=== PATIENT | female | born 1955 | race Caucasian/White ===

== ENCOUNTER 2017-02-13 07:25 | Emergency (ER) | payer OTHER ==
[~2017-02-13] VITALS: Ht 154.9 cm; Wt 70.5 kg
[~2017-02-13 07:25] MED LIST: DILT180C59 PO; METAMUCIL1 PK1 PO; OMEP40CA6 PO; RANI25TA PO; [UNRECOGNIZED DRUG - CODE] PO
[2017-02-13 07:27] VITALS: Ht 154.9 cm; Wt 70.5 kg
[2017-02-13] MEDS ORDERED: ONDANSETRON 4 MG INJ IV STA (08:20)
[2017-02-13] MEDS ORDERED: morphine 4 MG/ML VIAL IV STA (08:20)
[2017-02-13] MEDS ORDERED: SOD CHLORIDE 0.9% 500 ML IV STA (08:20)
[2017-02-13 08:59] LABS: ADD SCAN DIFF NO
[2017-02-13 09:02] LABS: BASOPHIL # 0.1 10^3/ul (0.0-0.1); BASOPHILS % 0.6 % (0.0-2.0); EOSINOPHILS # 0.2 10^3/ul (0.0-0.5); EOSINOPHILS % 2.8 % (0.0-7.0); HEMATOCRIT 35.4 % (37.0-47.0); LYMPHOCYTES # 1.4 10^3/ul (0.8-2.9); LYMPHOCYTES % 18.2 % (15.0-51.0); MEAN CORPUSCULAR HEMOGLOBIN 29.3 pg (29.0-33.0); MEAN CORPUSCULAR HGB CONC 33.9 g/dl (32.0-37.0); MEAN CORPUSCULAR VOLUME 86.3 fl (82.0-101.0); MEAN PLATELET VOLUME 9.8 fl (7.4-10.4); MONOCYTE # 0.6 10^3/ul (0.3-0.9); MONOCYTES % 7.4 % (0.0-11.0); NEUTROPHIL # 5.5 10^3/ul (1.6-7.5); NEUTROPHILS % 70.7 % (39.0-77.0); PLATELET COUNT 314 10^3/UL (140-415); RED CELL DISTRIBUTION WIDTH 13.9 % (11.5-14.5); WHITE BLOOD COUNT 7.8 10^3/ul (4.8-10.8)
[2017-02-13 09:11] LABS: ADD UMIC YES; UR ASCORBIC ACID NEGATIVE (NEGATIVE); UR BILIRUBIN (Dip) NEGATIVE (NEGATIVE); UR BLOOD (Dip) 1+ mg/dL (NEGATIVE); UR CLARITY CLEAR (CLEAR); UR COLOR YELLOW (YELLOW); UR GLUCOSE (Dip) NEGATIVE (NEGATIVE); UR KETONES (Dip) NEGATIVE (NEGATIVE); UR LEUKOCYTE ESTERASE (Dip) 1+ Leu/ul (NEGATIVE); UR NITRITE (Dip) NEGATIVE (NEGATIVE); UR RBC 1 /HPF (0-5); UR SPECIFIC GRAVITY (Dip) 1.018 (1.003-1.030); UR SQUAMOUS EPITHELIAL CELL FEW /HPF (FEW); UR TOTAL PROTEIN (Dip) NEGATIVE (NEGATIVE); UR UROBILINOGEN (Dip) NEGATIVE (NEGATIVE)
[2017-02-13 09:20] LABS: ALANINE AMINOTRANSFERASE 33 IU/L (13-69); ALBUMIN 4.6 g/dl (3.3-4.9); ALBUMIN/GLOBULIN RATIO 1.64; ALKALINE PHOSPHATASE 108 IU/L (42-121); ANION GAP 14 (8-16); ASPARTATE AMINO TRANSFERASE 24 IU/L (15-46); BILIRUBIN,INDIRECT 0.4 mg/dl (0-1.1); BILIRUBIN,TOTAL 0.4 mg/dl (0.2-1.3); BLOOD UREA NITROGEN 18 mg/dl (7-20); CALCIUM 9.5 mg/dl (8.4-10.2); CARBON DIOXIDE 26 mmol/L (21-31); CHLORIDE 105 mmol/L (97-110); GLUCOSE 90 mg/dl (70-220); SODIUM 141 mmol/L (135-144); TOTAL PROTEIN 7.4 g/dl (6.1-8.1)
[2017-02-13 09:35] LABS: TROPONIN-I < 0.012 ng/ml (0.00-0.12)
--- NOTE | 2017-02-13 09:43 | ERD ---
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 The patient describes approximately 12 hours of symptoms that include left lower quadrant abdominal discomfort with associated nonbloody nonbilious emesis. She also describes generalized malaise and mild headache that is dull, gradual and throbbing. She also reports a prolonged history of stable angina. Yesterday she had some mild shortness of breath alleviated by nitroglycerin which is standard for her. No current chest pain. No pleuritic pain. She denies any diarrhea, no hematochezia. She does describe a history of diverticulosis. ROS All systems reviewed and are negative except as per history of present illness. Medications Home Meds Active Scripts Diltiazem Hcl* (Cardizem LA*) 180 Mg Tab.sr.24h, 180 MG PO DAILY, #30 TAB.SA Prov:JUANITA DUNBAR MD 02/13/17 Omeprazole* (Omeprazole*) 40 Mg Capsule.dr, 40 MG PO DAILY, #30 CAP Prov:JUANITA DUNBAR MD 02/13/17 Dicyclomine Hcl* (Bentyl*) 10 Mg Capsule, 10 MG PO TID Y for abdominal cramping , #20 CAP Prov:JUANITA DUNBAR MD 02/13/17 Ondansetron (Ondansetron Odt) 4 Mg Tab.rapdis, 4 MG PO Q6H Y for NAUSEA AND/OR VOMITING, #30 TAB Prov:JUANITA DUNBAR MD 02/13/17 Reported Medications Psyllium Seed (Metamucil) 1 Pkt Packet, 1 PKT PO 07/06/13 Ranitidine Hcl (Zantac 25) 25 Mg Tablet.eff, 25 MG PO DAILY 07/06/13 Omeprazole* (Omeprazole*) 40 Mg Capsule.dr, 40 MG PO DAILY 07/06/13 Diltiazem Hcl (Diltia Xt) 180 Mg Capsule.cr, 180 MG PO DAILY 07/06/13 Aspirin (Asperdrink) 81 Mg Tablet.eff, 81 MG PO DAILY 07/06/13 Allergies Allergies: Coded Allergies: Penicillins (Verified Allergy, Intermediate, 02/13/17) PMhx/Soc History of Surgery: Yes (polyps, stents?) Anesthesia Reaction: No Hx Neurological Disorder: No Hx Respiratory Disorders: No Hx Cardiac Disorders: Yes (HIGH CHOLESTEROL,HTN) Hx Psychiatric Problems: No Hx Miscellaneous Medical Probl: Yes (diverticulitis) Hx Alcohol Use: No Hx Substance Use: No Hx Tobacco Use: No Smoking Status: Never smoker FmHx Family History: No diabetes Physical Exam Vitals Vital Signs Date Time Temp Pulse Resp B/P Pulse Ox O2 Delivery O2 Flow Rate FiO2 02/13/17 07:27 98.3 66 20 131/60 99 Physical Exam General: Well developed, well nourished, no acute distress Head: Normocephalic, atraumatic. Eyes: Pupils equally reactive, EOM intact ENT: Moist mucous membranes Neck: Supple, no lymphadenopathy Respiratory: Lungs clear bilaterally, no distress Cardiovascular: RRR, no murmurs, rubs, or gallops Abdominal: Soft, inconsistent tenderness to left lower quadrant, non-distended, no peritoneal signs : Deferred MSK: No edema, no unilateral swelling, 5/5 strength Neurologic: Alert and oriented, moving all extremities, normal speech, no focal weakness, no cerebellar signs Skin: No rash Psych: Normal mood Result Diagram: 02/13/17 0839 02/13/17 0839 Results 24 hrs Laboratory Tests Test 02/13/17 08:34 02/13/17 08:39 Urine Color YELLOW Urine Clarity CLEAR Urine pH 5.0 Urine Specific [place] 1.018 Urine Ketones NEGATIVEmg/dL Urine Nitrite NEGATIVEmg/dL Urine Bilirubin NEGATIVEmg/dL Urine Urobilinogen NEGATIVEmg/dL Urine Leukocyte Esterase 1+[place]/ul Urine Microscopic RBC 1/HPF Urine Microscopic WBC 2/HPF Urine Squamous Epithelial Cells FEW/HPF Urine Hemoglobin 1+mg/dL Urine Glucose NEGATIVEmg/dL Urine Total Protein NEGATIVEmg/dl White Blood Count 7.810^3/ul Red Blood Count 4.1010^6/ul Hemoglobin 12.0g/dl Hematocrit 35.4% Mean Corpuscular Volume 86.3fl Mean Corpuscular Hemoglobin 29.3pg Mean Corpuscular Hemoglobin Concent 33.9g/dl Red Cell Distribution Width 13.9% Platelet Count 99014^3/UL Mean Platelet Volume 9.8fl Neutrophils % 70.7% Lymphocytes % 18.2% Monocytes % 7.4% Eosinophils % 2.8% Basophils % 0.6% Nucleated Red Blood Cells % 0.0/100WBC Neutrophils # 5.510^3/ul Lymphocytes # 1.410^3/ul Monocytes # 0.610^3/ul Eosinophils # 0.210^3/ul Basophils # 0.110^3/ul Nucleated Red Blood Cells # 0.010^3/ul Sodium Level 141mmol/L Potassium Level 4.0mmol/L Chloride Level 105mmol/L Carbon Dioxide Level 26mmol/L Anion Gap 14 Blood Urea Nitrogen 18mg/dl Creatinine 0.80mg/dl Glucose Level 90mg/dl Calcium Level 9.5mg/dl Total Bilirubin 0.4mg/dl Direct Bilirubin 0.00mg/dl Indirect Bilirubin 0.4mg/dl Aspartate Amino Transf (AST/SGOT) 24IU/L Alanine Aminotransferase (ALT/SGPT) 33IU/L Alkaline Phosphatase 108IU/L Troponin I < 0.012ng/ml Total Protein 7.4g/dl Albumin 4.6g/dl Globulin 2.80g/dl Albumin/Globulin Ratio 1.64 Lipase 139U/L Current Medications Medications (Trade) Dose Ordered Sig/Kalpesh Route PRN Reason Start Time Stop Time Status Last Admin Dose Admin Sodium Chloride (NS) 500 ml @ 500 mls/hr Q1H STAT IV 02/13/17 08:20 02/13/17 09:19 DC 02/13/17 08:47 Morphine Sulfate (morphine) 4 mg ONCE STAT IV 02/13/17 08:20 02/13/17 08:21 DC 02/13/17 08:47 Ondansetron HCl (Zofran Inj) 4 mg ONCE STAT IV 02/13/17 08:20 02/13/17 08:21 DC 02/13/17 08:44 Procedures/MDM EKG, MONITORS, & DIAGNOSTIC IMAGING: EKG: I reviewed and interpreted a 12-lead EKG. Rhythm: Normal sinus rhythm Ectopy: None Intervals: No abnormalities ST segments: No elevations or depressions T waves: No contiguous inversions CT abdomen and pelvis: No acute intra-abdominal process per radiology LAB INTERPRETATION: No significant leukocytosis or hepatobiliary obstruction MEDICAL DECISION MAKING: The patient presents with report of nausea vomiting and lower left-sided abdominal pain. Given her history diverticulitis is certainly possible however a viral process is more likely suspected. The patient has an inconsistent examination and when having a conversation she has no tenderness to the left lower quadrant of the abdomen. Additionally it should be noted that the patient does describe a history of stable angina that is unchanged and consistent with her baseline. I do not believe the patient's abdominal pain is related to cardiac etiology however I do believe she will benefit from EKG and troponin. She has greater than 6 hours of symptoms and no chest pain during this timeframe. I do not believe inpatient hospitalization is necessary unless the patient's EKG her troponin is abnormal. ER COURSE: The patient was given IV fluids and pain control medication. Repeat abdominal exam is benign. Laboratory testing and diagnostic imaging is additionally benign. The patient requests refills for omeprazole and Cardizem which were provided. At this time there is no indication for hospitalization or antibiotics, likely viral process. The patient has no chest pain and describes no change in her stable angina. Outpatient follow-up would be appropriate. Negative EKG and troponin currently. I kept the patient and/or family informed of laboratory and diagnostic imaging results throughout the emergency room course. DISPOSITION PLAN: [] CONSULTATION: [] Departure Diagnosis: Primary Impression: Abdominal pain Abdominal location: left lower quadrant Qualified Code: R10.32 - Left lower quadrant pain Condition: Stable JUANITA DUNBAR MD Feb 13, 2017 09:43
--- NOTE | 2017-02-13 09:46 | RADRPT ---
PROCEDURE: CT Abdomen and Pelvis without contrast. CLINICAL INDICATION: Left-sided abdominal pain. History of diverticulitis. TECHNIQUE: CT scan of the abdomen and pelvis without contrast was performed on a multidetector hig h-resolution CT scanner. The patient was scanned without intravenous contrast. Coronal and sagittal reformatted images were obtained from the axial source images. Images were reviewed on a high-resol [employer] PACS workstation. The total exam CTDI equals 14.6 mGy and the total exam DLP equals 783.04 mGy -cm. One or the following dose reduction techniques were used: -Automated exposure control. -Adjustment of the mA and/or KV according to patient's size. -Use of iterative reconstruction technique. COMPARISON: None. FINDINGS: Lung Bases: There is minimal bibasilar dependent subsegmental atelectasis. GI:. There is a small hiatal hernia. Liver: Unremarkable. Gallbladder: Unremarkable. Pancreas: Unremarkable. Spleen: There is a 1.5 cm splenule in the splenic hilum. Adrenals: Unremarkable. Kidneys: There is no evidence of urolithiasis or obstructive uropathy. Bladder: Unremarkable. Pelvic Organs: Unremarkable. Skeleton: Normal for age. Other: N/A IMPRESSION: 1. No evidence of urolithiasis or obstructive uropathy. 2. Minimal scattered colonic diverticulosis without evidence of acute diverticulitis. 3. Small hiatal hernia. 4. No other significant intra-abdominal or pelvic process identified. RPTAT: [facility] Physician Manuel Date Time Electronically viewed and signed by Physician Manuel on 02/13/2017 09:45 /
[2017-02-13] MEDS ORDERED: DICY10CA60 PO (10:10)
[2017-02-13] MEDS ORDERED: ONDA4TAB14 PO (10:10)
[2017-02-13] MEDS ORDERED: OMEP40CA6 PO (10:34)
[2017-02-13] MEDS ORDERED: DILT180T PO (10:34)
[2017-02-13 11:10] VITALS: BP 122/64; PULSE 55; RESP 18; TEMP 98
== END 2017-02-13 11:10 | disposition home or self-care (01) ==
LOC: E/R 07:25
DX: R10.32 Left lower quadrant pain (principal); R11.10 Vomiting, unspecified; I10 Essential (primary) hypertension; Z79.82 Long term (current) use of aspirin
CPT/HCPCS: 36415; 74176; 80053; 81001; 83690; 84484; 85025; 93005; 96374; 96375; J2270; J2405; J7040; Z7502

== ENCOUNTER 2017-04-23 09:57 | Emergency (ER) | payer OTHER ==
[~2017-04-23] VITALS: Ht 160 cm; Wt 70.5 kg
[~2017-04-23 09:57] MED LIST changes: +DICY10CA60 PO; +DILT180T PO; +ONDA4TAB14 PO
[2017-04-23 10:01] VITALS: Ht 160 cm; Wt 70.5 kg
[2017-04-23 11:40] LABS: BASOPHIL # 0.1 10^3/ul (0.0-0.1); BASOPHILS % 0.6 % (0.0-2.0); EOSINOPHILS # 0.3 10^3/ul (0.0-0.5); EOSINOPHILS % 2.6 % (0.0-7.0); HEMATOCRIT 38.4 % (37.0-47.0); HEMOGLOBIN 12.8 g/dl (12.0-16.0); LYMPHOCYTES # 1.6 10^3/ul (0.8-2.9); LYMPHOCYTES % 14.4 % (15.0-51.0); MEAN CORPUSCULAR HEMOGLOBIN 28.2 pg (29.0-33.0); MEAN CORPUSCULAR HGB CONC 33.3 g/dl (32.0-37.0); MEAN CORPUSCULAR VOLUME 84.6 fl (82.0-101.0); MONOCYTES % 9.1 % (0.0-11.0); NEUTROPHILS % 72.9 % (39.0-77.0); PLATELET COUNT 329 10^3/UL (140-415); RED BLOOD COUNT 4.54 10^6/ul (4.20-5.40); RED CELL DISTRIBUTION WIDTH 13.6 % (11.5-14.5); WHITE BLOOD COUNT 11.3 10^3/ul (4.8-10.8)
--- NOTE | 2017-04-23 12:04 | RADRPT ---
PROCEDURE: Chest radiograph CLINICAL INDICATION: Chest Pain.. COMPARISON: Radiograph 07/06/2013. TECHNIQUE: Single frontal chest radiograph. FINDINGS: The lungs are clear. No pleural effusion or focal parenchymal opacity. The cardiomediastinal silhouette is normal. No suspicious bone lesion. IMPRESSION: No acute cardiopulmonary abnormality. RPTAT: PP Physician Alejandro Date Time Electronically viewed and signed by Crystal Smith Physician on 04/23/2017 12:04 LG/
--- NOTE | 2017-04-23 12:15 | RADRPT ---
PROCEDURE: Hand radiograph CLINICAL INDICATION: Fall. COMPARISON: None relevant listed. TECHNIQUE: AP, lateral, and oblique views of the right hand was obtained. FINDINGS: Alignment is anatomic. No fracture or destructive bone lesion. Large degenerative marginal osteophytes at the DIP joint of the middle finger and small finger. No localized soft tissue swelling. IMPRESSION: No acute fracture or dislocation. RPTAT: PP Physician Alejandro Date Time Electronically viewed and signed by Physician Alejandro on 04/23/2017 12:15 LG/
[2017-04-23 12:18] LABS: ALANINE AMINOTRANSFERASE 30 IU/L (13-69); ALBUMIN 4.3 g/dl (3.3-4.9); ALBUMIN/GLOBULIN RATIO 1.26; ALKALINE PHOSPHATASE 119 IU/L (42-121); ANION GAP 17 (8-16); ASPARTATE AMINO TRANSFERASE 24 IU/L (15-46); BILIRUBIN,INDIRECT 0.3 mg/dl (0-1.1); BILIRUBIN,TOTAL 0.3 mg/dl (0.2-1.3); BLOOD UREA NITROGEN 17 mg/dl (7-20); CALCIUM 9.3 mg/dl (8.4-10.2); CARBON DIOXIDE 22 mmol/L (21-31); CHLORIDE 104 mmol/L (97-110); CREATININE 0.95 mg/dl (0.44-1.00); GLUCOSE 97 mg/dl (70-220); POTASSIUM 4.1 mmol/L (3.5-5.1); SODIUM 139 mmol/L (135-144); TOTAL PROTEIN 7.7 g/dl (6.1-8.1)
--- NOTE | 2017-04-23 12:18 | RADRPT ---
PROCEDURE: Knee radiographs CLINICAL INDICATION: Fall. COMPARISON: None relevant listed. TECHNIQUE: AP, lateral, and oblique view of both knees. FINDINGS: Right knee: Mild tricompartmental joint space narrowing with marginal osteophytes and spurring of t he tibial eminences. No fracture. Lungs is anatomic. Large suprapatellar effusion. Left knee: Small tricompartmental marginal osteophytes with spurring of the tibial eminences. No f racture. Alignment is anatomic. Small suprapatellar effusion. IMPRESSION: 1. No fracture or dislocation. 2. Large right and small left suprapatellar effusion. 3. Degenerative tricompartmental osteoarthrosis. RPTAT: PP Physician Alejandro Date Time Electronically viewed and signed by Physician Alejandro on 04/23/2017 12:18 LG/
[2017-04-23 12:33] LABS: TROPONIN-I < 0.012 ng/ml (0.00-0.12)
[2017-04-23] MEDS ORDERED: IBUP800T25 PO (12:44)
[2017-04-23] MEDS ORDERED: CEPH-443 PO (12:44)
--- NOTE | 2017-04-23 14:46 | ERD ---
ER Documentation Chief Complaint Date/Time DATE: 04/23/17 TIME: 14:39 Chief Complaint B/L KNEE PAIN , RT HAND LAC S/P FALL HPI 62 yr old complaining of hand and knee pain after mechanical fall. Patient also has chest pain and has history of cardiac stents. Patient denies shortness of breath. Patient denies headaches or dizziness. Patient has not taken medications for symptoms. Patient sustained a laceration to her right medial hand. She has not used any medications on the site. States she is up-to-date on tetanus. ROS All systems reviewed and are negative except as per history of present illness. Medications Home Meds Active Scripts Ibuprofen* (Motrin*) 800 Mg Tab, 800 MG PO Q6, #30 TAB Prov:MADISYN FAIR PA-C 04/23/17 Cephalexin* (Keflex*) 500 Mg Capsule, 500 MG PO QID for 7 Days, CAP Prov:MADISYN FAIR PA-C 04/23/17 Diltiazem Hcl* (Cardizem LA*) 180 Mg Tab.sr.24h, 180 MG PO DAILY, #30 TAB.SA Prov:JUANITA DUNBAR MD 02/13/17 Omeprazole* (Omeprazole*) 40 Mg Capsule.dr, 40 MG PO DAILY, #30 CAP Prov:JUANITA DUNBAR MD 02/13/17 Dicyclomine Hcl* (Bentyl*) 10 Mg Capsule, 10 MG PO TID Y for abdominal cramping , #20 CAP Prov:JUANITA DUNBAR MD 02/13/17 Ondansetron (Ondansetron Odt) 4 Mg Tab.rapdis, 4 MG PO Q6H Y for NAUSEA AND/OR VOMITING, #30 TAB Prov:JUANITA DUNBAR MD 02/13/17 Reported Medications Psyllium Seed (Metamucil) 1 Pkt Packet, 1 PKT PO 07/06/13 Ranitidine Hcl (Zantac 25) 25 Mg Tablet.eff, 25 MG PO DAILY 07/06/13 Omeprazole* (Omeprazole*) 40 Mg Capsule.dr, 40 MG PO DAILY 07/06/13 Diltiazem Hcl (Diltia Xt) 180 Mg Capsule.cr, 180 MG PO DAILY 07/06/13 Aspirin (Asperdrink) 81 Mg Tablet.eff, 81 MG PO DAILY 07/06/13 Allergies Allergies: Coded Allergies: Penicillins (Verified Allergy, Intermediate, 02/13/17) Uncoded Allergies: SULFA (Allergy, Unknown, 04/23/17) PMhx/Soc History of Surgery: Yes (polyps, stents?) Anesthesia Reaction: No Hx Neurological Disorder: No Hx Respiratory Disorders: No Hx Cardiac Disorders: Yes (HTN) Hx Psychiatric Problems: No Hx Miscellaneous Medical Probl: Yes (Gastritis) Hx Alcohol Use: No Hx Substance Use: No Hx Tobacco Use: No Smoking Status: Never smoker Physical Exam Vitals Vital Signs Date Time Temp Pulse Resp B/P Pulse Ox O2 Delivery O2 Flow Rate FiO2 04/23/17 10:01 98.5 88 18 157/66 100 Physical Exam GENERAL: The patient is well-appearing, well-nourished, in no acute distress CHEST: Clear to auscultation bilaterally. There are no rales, wheezes or rhonchi. HEART: Regular rate and rhythm. No murmurs, clicks, rubs or gallops. No S3 or S4. EXTREMITIES: Equal pulses bilaterally. There is no peripheral clubbing, cyanosis or edema. No focal swelling or erythema. Full range of motion. Grossly neurovascularly intact. NEUROLOGIC: Alert and oriented. Cranial nerves II through XII intact. Motor strength in all 4 extremities with 5 out of 5 strength. Sensation grossly intact. Normal speech and gait. Babinski negative. DTR 2+ throughout. SKIN: Superficial laceration approximately 4 cm to right medial hand. No active bleeding. No foreign bodies. HEMATOLOGIC AND LYMPHATIC: There is no evidence of excessive bruising or lymphadenopathy. No gross cervical, axillary, or inguinal lymphadenopathy. Result Diagram: 04/23/17 1102 04/23/17 1102 Results 24 hrs Laboratory Tests Test 04/23/17 11:02 White Blood Count 11.310^3/ul Red Blood Count 4.5410^6/ul Hemoglobin 12.8g/dl Hematocrit 38.4% Mean Corpuscular Volume 84.6fl Mean Corpuscular Hemoglobin 28.2pg Mean Corpuscular Hemoglobin Concent 33.3g/dl Red Cell Distribution Width 13.6% Platelet Count 40567^3/UL Mean Platelet Volume 10.0fl Neutrophils % 72.9% Lymphocytes % 14.4% Monocytes % 9.1% Eosinophils % 2.6% Basophils % 0.6% Nucleated Red Blood Cells % 0.0/100WBC Neutrophils # (Manual) 8.210^3/ul Lymphocytes # 1.610^3/ul Monocytes # 1.010^3/ul Eosinophils # 0.310^3/ul Basophils # 0.110^3/ul Nucleated Red Blood Cells # 0.010^3/ul Sodium Level 139mmol/L Potassium Level 4.1mmol/L Chloride Level 104mmol/L Carbon Dioxide Level 22mmol/L Anion Gap 17 Blood Urea Nitrogen 17mg/dl Creatinine 0.95mg/dl Glucose Level 97mg/dl Calcium Level 9.3mg/dl Total Bilirubin 0.3mg/dl Direct Bilirubin 0.00mg/dl Indirect Bilirubin 0.3mg/dl Aspartate Amino Transf (AST/SGOT) 24IU/L Alanine Aminotransferase (ALT/SGPT) 30IU/L Alkaline Phosphatase 119IU/L Troponin I < 0.012ng/ml Total Protein 7.7g/dl Albumin 4.3g/dl Globulin 3.40g/dl Albumin/Globulin Ratio 1.26 Procedures/MDM DIAGNOSTIC IMAGING REPORT Patient: EMANUEL COOL : 1955 Age: 62 Sex: F MR #: [id number] DOS: 04/23/17 110 Ordering MD: MARIEL FARI PA-C Location: [facility] Room/Bed: PROCEDURE: Chest radiograph CLINICAL INDICATION: Chest Pain.. COMPARISON: Radiograph 07/06/2013. TECHNIQUE: Single frontal chest radiograph. FINDINGS: The lungs are clear. No pleural effusion or focal parenchymal opacity. The cardiomediastinal silhouette is normal. No suspicious bone lesion. IMPRESSION: No acute cardiopulmonary abnormality. DIAGNOSTIC IMAGING REPORT Patient: EMANUEL COOL : 1955 Age: 62 Sex: F MR #: [id number] DOS: 04/23/17 110 Ordering MD: MARIEL FAIR PA-C Location: [facility] Room/Bed: PROCEDURE: Hand radiograph CLINICAL INDICATION: Fall. COMPARISON: None relevant listed. TECHNIQUE: AP, lateral, and oblique views of the right hand was obtained. FINDINGS: Alignment is anatomic. No fracture or destructive bone lesion. Large degenerative marginal osteophytes at the DIP joint of the middle finger and small finger. No localized soft tissue swelling. IMPRESSION: No acute fracture or dislocation. DIAGNOSTIC IMAGING REPORT Patient: EMANUEL COOL : 1955 Age: 62 Sex: F MR #: [id number] DOS: 04/23/17 1102 Ordering MD: MARIEL FAIR PA-C Location: [facility] Room/Bed: PROCEDURE: Knee radiographs CLINICAL INDICATION: Fall. COMPARISON: None relevant listed. TECHNIQUE: AP, lateral, and oblique view of both knees. FINDINGS: Right knee: Mild tricompartmental joint space narrowing with marginal osteophytes and spurring of the tibial eminences. No fracture. Lungs is anatomic. Large suprapatellar effusion. Left knee: Small tricompartmental marginal osteophytes with spurring of the tibial eminences. No fracture. Alignment is anatomic. Small suprapatellar effusion. IMPRESSION: 1. No fracture or dislocation. 2. Large right and small left suprapatellar effusion. 3. Degenerative tricompartmental osteoarthrosis. ER Course: Laceration on right hand is older than 24 hours. Site will not be sutured. Site was cleaned and bacitracin ointment and bandage applied. EKG: NSR. No Stemi. 68 BPM. No arrythmias. MDM: 62-year-old female complaining of hand pain after fall. I have low suspicion for acute fracture dislocation. I have low suspicion for cardiac abnormalities. I have low suspicion for intracranial hemorrhage or mass- effect. Patient's neuro exam is within normal limits. Patient's bone exam is within normal limits and imaging is within normal limits. Patient does have a superficial laceration noted of the right medial hand. Patient's wound is older than 24 hours so there is no indication for suturing however I did clean and bandage the wound. Patient was placed on antibiotics for prophylaxis. Patient is up-to-date on tetanus and does not require vaccination at today's visit. Departure Diagnosis: Primary Impression: Abrasion Additional Impression: Fall Condition: Stable Patient Instructions: Abrasion, Fall, Mechanical Referrals: COMMUNITY CLINICS YOU HAVE RECEIVED A MEDICAL SCREENING EXAM AND THE RESULTS INDICATE THAT YOU DO NOT HAVE A CONDITION THAT REQUIRES URGENT TREATMENT IN THE EMERGENCY DEPARTMENT. FURTHER EVALUATION AND TREATMENT OF YOUR CONDITION CAN WAIT UNTIL YOU ARE SEEN IN YOUR DOCTORS OFFICE WITHIN THE NEXT 1-2 DAYS. IT IS YOUR RESPONSIBILITY TO MAKE AN APPOINTMENT FOR FOLOW-UP CARE. IF YOU HAVE A PRIMARY DOCTOR --you should call your primary doctor and schedule an appointment IF YOU DO NOT HAVE A PRIMARY DOCTOR YOU CAN CALL OUR PHYSICIAN REFERRAL HOTLINE AT IF YOU CAN NOT AFFORD TO SEE A PHYSICIAN YOU CAN CHOSE FROM THE FOLLOWING [facility] [address] [facility] [address] [facility] [facility] [address] [facility] [address] [facility] [address] [facility] [facility] [address] Additional Instructions: FOLLOW UP WITH YOUR PRIMARY CARE PHYSICIAN TOMORROW.Return to this facility if you are not improving as expected. MADISYN FAIR PA-C Apr 23, 2017 14:46
== END 2017-04-23 13:02 | disposition home or self-care (01) ==
LOC: FTE 09:57
DX: S61.411A Laceration without foreign body of right hand, initial encounter (principal); I10 Essential (primary) hypertension; W18.39XA Other fall on same level, initial encounter; Y92.9 Unspecified place or not applicable; Z79.82 Long term (current) use of aspirin; Z98.61 Coronary angioplasty status
CPT/HCPCS: 36415; 71010; 73130; 73562; 80053; 84484; 85025; 93005; Z7502

== ENCOUNTER 2017-05-30 19:01 | Emergency (ER) | payer OTHER ==
[~2017-05-30] VITALS: Ht 165.1 cm; Wt 73.5 kg
[~2017-05-30 19:01] MED LIST changes: +CEPH-443 PO; +IBUP800T25 PO
[2017-05-30 19:25] VITALS: Ht 165.1 cm; Wt 73.5 kg
--- NOTE | 2017-05-30 21:44 | RADRPT ---
PROCEDURE: CT Brain without contrast. CLINICAL INDICATION: Syncope TECHNIQUE: A CT of the brain was performed on a multidetector CT scanner utilizing axial imaging f rom the skull base through the vertex without IV contrast. Multiplanar reformatted images were made . Images were reviewed on a PACS workstation. The CTDIvol is 43 mGy and the DLP is the 824 mGycm. Individualized dosed optimization technique was used for the performance of this exam. This included 1. Automated exposure control. 2. Adjustment of the mA and / or kV according to the patient's size. 3. The use of iterative reconstruction technique. COMPARISON: None FINDINGS: There is no intracranial hemorrhage, mass effect, or midline shift. No extra-axial fluid collection is seen. There is mild to moderate diffuse cerebral volume loss with sulcal and ventricular dilatat ion.. The density of the brain is normal, and the haas white matter differentiation appears well-pre served. The visualized paranasal sinuses and osseous structures are grossly unremarkable. IMPRESSION: 1. No evidence of acute intracranial pathology. 2. Atrophy. .Ivan Palacios MD, Date Time Electronically viewed and signed by .Ivan Palacios MD, MD on 05/30/2017 21:44 .A/
[2017-05-30 22:01] LABS: BASOPHIL # 0.1 10^3/ul (0.0-0.1); BASOPHILS % 0.7 % (0.0-2.0); EOSINOPHILS # 0.3 10^3/ul (0.0-0.5); EOSINOPHILS % 2.8 % (0.0-7.0); HEMATOCRIT 38.7 % (37.0-47.0); HEMOGLOBIN 12.6 g/dl (12.0-16.0); LYMPHOCYTES # 2.4 10^3/ul (0.8-2.9); LYMPHOCYTES % 21.3 % (15.0-51.0); MEAN CORPUSCULAR HEMOGLOBIN 28.1 pg (29.0-33.0); MEAN CORPUSCULAR HGB CONC 32.6 g/dl (32.0-37.0); MEAN CORPUSCULAR VOLUME 86.2 fl (82.0-101.0); MEAN PLATELET VOLUME 9.7 fl (7.4-10.4); MONOCYTE # 0.6 10^3/ul (0.3-0.9); MONOCYTES % 5.3 % (0.0-11.0); NEUTROPHILS % 69.4 % (39.0-77.0); PLATELET COUNT 363 10^3/UL (140-415); RED BLOOD COUNT 4.49 10^6/ul (4.20-5.40); RED CELL DISTRIBUTION WIDTH 13.6 % (11.5-14.5); WHITE BLOOD COUNT 11.5 10^3/ul (4.8-10.8)
--- NOTE | 2017-05-30 22:06 | RADRPT ---
PROCEDURE: XR Chest. CLINICAL INDICATION: Chest pain. TECHNIQUE: Single frontal view. COMPARISON: 04/23/2017. FINDINGS: The lungs are clear. The heart size is normal. There is no pleural effusion. There is no pneumothorax. IMPRESSION: 1. Normal chest radiograph. 2. No change from 04/23/2017. RPTAT: QQ .Bib Isaacs MD, MD Date Time Electronically viewed and signed by .Bib Isaacs MD, MD on 05/30/2017 22:05 .R/
[2017-05-30 22:24] LABS: ANION GAP 12 (8-16); BLOOD UREA NITROGEN 19 mg/dl (7-20); CALCIUM 9.7 mg/dl (8.4-10.2); CARBON DIOXIDE 29 mmol/L (21-31); CHLORIDE 103 mmol/L (97-110); CREATININE 0.89 mg/dl (0.44-1.00); GLUCOSE 100 mg/dl (70-220); POTASSIUM 4.4 mmol/L (3.5-5.1); SODIUM 140 mmol/L (135-144)
[2017-05-30 22:37] LABS: TROPONIN-I < 0.012 ng/ml (0.00-0.12)
[2017-05-30] MEDS ORDERED: MED4DP PO (22:44)
--- NOTE | 2017-05-31 01:47 | ERD ---
ER Documentation Chief Complaint Date/Time DATE: 05/31/17 TIME: 01:41 Chief Complaint cough x 12 days. "back and chest feels sore" taking prescription meds HPI This is a 62-year-old female presents to the ER with cough for the last 12 days. Patient states that she has chest pain only when she is coughing. She denies any shortness of breath. Patient went to her PCP and was given Levaquin , albuterol and promethazine, none of which have been working. Patient states that she has been feeling dizzy which is described as a spinning sensation and that she fell once secondary to dizziness. Patient fell on her knees and does not complain of any knee pain or hand pain. Patient denies any fevers or chills. She denies any headaches. She denies any vision loss or vision changes. ROS 12 point review of systems was done, all negative except per HPI. Medications Home Meds Active Scripts Methylprednisolone* (Medrol* DOSE PACK) 4 Mg/Dose-Pack Tab.ds.pk, 4 MG PO . DIRECTED for 6 Days, PACKET Prov:DARIN REED 05/30/17 Ibuprofen* (Motrin*) 800 Mg Tab, 800 MG PO Q6, #30 TAB Prov:MADISYN FAIR PA-C 04/23/17 Cephalexin* (Keflex*) 500 Mg Capsule, 500 MG PO QID for 7 Days, CAP Prov:MADISYN FAIR PA-C 04/23/17 Diltiazem Hcl* (Cardizem LA*) 180 Mg Tab.sr.24h, 180 MG PO DAILY, #30 TAB.SA Prov:JUANITA DUNBAR MD 02/13/17 Omeprazole* (Omeprazole*) 40 Mg Capsule.dr, 40 MG PO DAILY, #30 CAP Prov:JUANITA DUNBAR MD 02/13/17 Dicyclomine Hcl* (Bentyl*) 10 Mg Capsule, 10 MG PO TID Y for abdominal cramping , #20 CAP Prov:JUANITA DUNBAR MD 02/13/17 Ondansetron (Ondansetron Odt) 4 Mg Tab.rapdis, 4 MG PO Q6H Y for NAUSEA AND/OR VOMITING, #30 TAB Prov:JUANITA DUNBAR MD 02/13/17 Reported Medications Psyllium Seed (Metamucil) 1 Pkt Packet, 1 PKT PO 07/06/13 Ranitidine Hcl (Zantac 25) 25 Mg Tablet.eff, 25 MG PO DAILY 07/06/13 Omeprazole* (Omeprazole*) 40 Mg Capsule.dr, 40 MG PO DAILY 07/06/13 Diltiazem Hcl (Diltia Xt) 180 Mg Capsule.cr, 180 MG PO DAILY 07/06/13 Aspirin (Asperdrink) 81 Mg Tablet.eff, 81 MG PO DAILY 07/06/13 Allergies Allergies: Coded Allergies: Penicillins (Verified Allergy, Intermediate, 05/31/17) Sulfa (Sulfonamide Antibiotics) (Unverified Allergy, Intermediate, ) PMhx/Soc History of Surgery: Yes (polyps, stents?) Anesthesia Reaction: No Hx Neurological Disorder: No Hx Respiratory Disorders: No Hx Cardiac Disorders: Yes (HTN) Hx Psychiatric Problems: No Hx Miscellaneous Medical Probl: Yes (Gastritis) Hx Alcohol Use: No Hx Substance Use: No Hx Tobacco Use: No Smoking Status: Never smoker Physical Exam Vitals Physical Exam GENERAL: The patient is well developed and appropriate for usual state of health , in no apparent distress. HEENT: Atraumatic. Conjunctivae are pink. Pupils equal, round, and reactive to light. Extraocular muscles are grossly intact. No nystagmus. Bilateral tympanic membranes are clear with no evidence of erythema, bulging or perforation. NECK: C-spine is soft and supple. There is no cervical lymphadenopathy. CHEST: Clear to auscultation bilaterally. There are no rales, wheezes or rhonchi. HEART: Regular rate and rhythm. No murmurs, clicks, rubs or gallops. EXTREMITIES: Equal pulses bilaterally. There is no peripheral clubbing, cyanosis or edema. No focal swelling or erythema. Full range of motion. Grossly neurovascularly intact. NEURO: Alert and oriented. Cranial nerves II through XII are intact. Motor strength in all 4 extremities with 5/5 strength. Sensation grossly intact. Normal speech and gait. Negative Rhomberg. +2 DTRs. SKIN: There is no apparent rash or petechia. The skin is warm and dry. Results 24 hrs Laboratory Tests Test 05/30/17 21:14 05/30/17 21:43 Bedside Glucose 89mg/dL White Blood Count 11.510^3/ul Red Blood Count 4.4910^6/ul Hemoglobin 12.6g/dl Hematocrit 38.7% Mean Corpuscular Volume 86.2fl Mean Corpuscular Hemoglobin 28.1pg Mean Corpuscular Hemoglobin Concent 32.6g/dl Red Cell Distribution Width 13.6% Platelet Count 51314^3/UL Mean Platelet Volume 9.7fl Neutrophils % 69.4% Lymphocytes % 21.3% Monocytes % 5.3% Eosinophils % 2.8% Basophils % 0.7% Nucleated Red Blood Cells % 0.0/100WBC Neutrophils # 8.010^3/ul Lymphocytes # 2.410^3/ul Monocytes # 0.610^3/ul Eosinophils # 0.310^3/ul Basophils # 0.110^3/ul Nucleated Red Blood Cells # 0.010^3/ul Sodium Level 140mmol/L Potassium Level 4.4mmol/L Chloride Level 103mmol/L Carbon Dioxide Level 29mmol/L Anion Gap 12 Blood Urea Nitrogen 19mg/dl Creatinine 0.89mg/dl Glucose Level 100mg/dl Calcium Level 9.7mg/dl Troponin I < 0.012ng/ml Procedures/MDM EKG was done 59bpm no st elevation or t wave inversion. Differential Diagnosis includes but is not limited to; Benign positional vertigo , labyrinthitis, vertigo, MS, acoustic neuroma, arrhythmia, anemia, hypoglycemia , infection, dehydration, pneumonia, acute PR. This is a 62 y/o female that presents to the ER with multiple complaints. She has had a severe cough for the last 12 days and states that now she has developed chest pain, and dizziness. I discussed this case with my supervising physician Dr. Skelton and he agrees with my medical decision making. Patient likely has a viral upper respiratory infection. Patient's EKG was negative for ST elevation and her troponin is negative. CT of the head was also negative for any intracranial abnormality. Patient's neurological examination is benign. Patient is not hypoxic or any respiratory distress. She is able to ambulate without any problems and has not had any falls or head trauma. She is stable for outpatient follow up. Patient needs to f/u with her PCP within 1-2 days or return to ER sooner if symptoms worsen. My medical decision making was discussed with the patient, she understands and agrees with plan. Departure Diagnosis: Primary Impression: Bronchitis Condition: Stable Patient Instructions: Acute Bronchitis Additional Instructions: Llame al doctor MAANA y radha fiorella BRITTANY PARA DENTRO DE 1-2 CHRISTIAN.Dgale a la secretaria que nosotros le instruimos hacer esta brittany.Avise o llame si galvez condicin se empeora antes de la brittany. Regresa aqui si peor o no mejor. DARIN REED May 31, 2017 01:47 DARIN REED May 31, 2017 01:47
== END 2017-05-30 22:57 | disposition home or self-care (01) ==
LOC: FTE 19:01
DX: J20.9 Acute bronchitis, unspecified (principal); I10 Essential (primary) hypertension; R55 Syncope and collapse; Z79.82 Long term (current) use of aspirin
CPT/HCPCS: 36415; 70450; 71010; 80048; 82962; 84484; 85025; 93005; Z7502

== ENCOUNTER 2017-05-31 20:24 | Emergency (ER) | payer SELFPAY ==
[~2017-05-31] VITALS: Ht 149.9 cm; Wt 74.5 kg
[~2017-05-31 20:24] MED LIST changes: +MED4DP PO
[2017-05-31 20:44] VITALS: Ht 149.9 cm; Wt 74.5 kg
== END 2017-06-01 00:33 | disposition left against medical advice (07) ==
LOC: E/R 20:24
DX: Z53.21 Procedure and treatment not carried out due to patient leaving prior to being seen by health care provider (principal)
CPT/HCPCS: 93005

== ENCOUNTER 2017-11-12 10:28 | Emergency (ER) | END 2017-11-12 12:51 | disposition home or self-care (01) ==

== ENCOUNTER 2018-04-10 14:44 | Emergency (ER) | END 2018-04-10 17:31 | disposition left against medical advice (07) ==

== ENCOUNTER 2018-10-25 15:32 | Emergency (ER) | payer SELFPAY ==
[~2018-10-25] VITALS: Ht 167.6 cm; Wt 75.3 kg
[~2018-10-25 15:32] MED LIST changes: +CLIN300C10 PO; +DICY10CA40 PO; -DICY10CA60 PO; +IBUP-1542 PO; -IBUP800T25 PO; +IBUP800T48 PO; +TRAM50TA2 PO
[2018-10-25 15:40] VITALS: BP 127/80; PULSE 84; RESP 20; Ht 167.6 cm; Wt 75.3 kg
== END 2018-10-25 18:26 | disposition left against medical advice (07) ==
LOC: FTE 15:32
DX: Z53.21 Procedure and treatment not carried out due to patient leaving prior to being seen by health care provider (principal)

== ENCOUNTER 2018-10-29 06:19 | Day surgery (SDC) | payer MEDICARE, OTHER ==
[~2018-10-29] VITALS: Ht 162.6 cm; Wt 73.0 kg
[2018-10-29 07:11] VITALS: Ht 162.6 cm; Wt 73.0 kg
[2018-10-29] MEDS ORDERED: NITR0.4T32 SL (07:28)
[2018-10-29] MEDS ORDERED: RANI-513 PO (07:28)
[2018-10-29] MEDS ORDERED: VITAMINS (07:28)
--- NOTE | 2018-10-29 07:56 | PREAC ---
Date/Time of Note Date/Time of Note DATE: 10/29/18 TIME: 07:53 Anesthesia Eval and Record Evaluation Time Pre-Procedure Interview DATE: 10/29/18 TIME: 07:53 Age 63 Sex female NPO: 8 hrs Preoperative diagnosis GERD; rectal bleed Planned procedure EGD/Colonoscopy Past Medical History Past Medical History: Includes (fibromyalgia, Osteoporosis, hx chest pain - used Nitrogylcerin 3 weeks ago) Cardio: HTN, Dyslipidemia Neuro: CVA Musculoskeletal: Osteoarthritis Surgery & Anesthesia Issues No known issue (hysterectomy, cardiac catheterization, tubal ligation) Meds Anticoagulation: No Beta Nani within 24 hr: No Reason Beta Nani not given: Pt. not on B-Nani Active Scripts Diltiazem Hcl* (Cardizem LA*) 180 Mg Tab.sr.24h, 180 MG PO DAILY, #30 TAB.SA Prov:JUANITA DUNBAR MD 02/13/17 Reported Medications Nitroglycerin* (Nitroglycerin* SL) 0.4 Mg Tab.subl, 0.4 MG SL Q5MIN PRN for CHEST PAIN, BOTTLE 10/29/18 [Vitamins] No Conflict Check 10/29/18 Ranitidine Hcl* (Ranitidine Hcl*) 75 Mg Tablet, 40 MG PO BID PRN for HEARTBURN, #60 TAB 10/29/18 Omeprazole* (Omeprazole*) 40 Mg Capsule.dr, 40 MG PO DAILY 07/06/13 Diltiazem Hcl (Diltia Xt) 180 Mg Capsule.cr, 180 MG PO DAILY 07/06/13 Aspirin (Asperdrink) 81 Mg Tablet.eff, 81 MG PO DAILY 07/06/13 Discontinued Reported Medications Psyllium Seed (Metamucil) 1 Pkt Packet, 1 PKT PO 07/06/13 Ranitidine Hcl (Zantac 25) 25 Mg Tablet.eff, 25 MG PO DAILY 07/06/13 Discontinued Scripts Tramadol HCl (Tramadol HCl) 50 Mg Tablet, 50 MG PO Q4 PRN for PAIN, #15 TAB Prov:TANYA HOOPER MD 11/12/17 Clindamycin Hcl* (Clindamycin Hcl*) 300 Mg Capsule, 300 MG PO QID for 7 Days, CAP Prov:TANYA HOOPER MD 11/12/17 Ibuprofen* (Motrin*) 600 Mg Tab, 600 MG PO Q6, #20 TAB Prov:TANYA HOOPER MD 11/12/17 Methylprednisolone* (Medrol* DOSE PACK) 4 Mg/Dose-Pack Tab.ds.pk, 4 MG PO . DIRECTED for 6 Days, PACKET Prov:BRIANNADARIN Evy 05/30/17 Ibuprofen* (Motrin*) 800 Mg Tab, 800 MG PO Q6, #30 TAB Prov:MADISYN FAIR PA-C 04/23/17 Cephalexin* (Keflex*) 500 Mg Capsule, 500 MG PO QID for 7 Days, CAP Prov:MADISYN FAIR PA-C 04/23/17 Omeprazole* (Omeprazole*) 40 Mg Capsule.dr, 40 MG PO DAILY, #30 CAP Prov:JUANITA DUNBAR MD 02/13/17 Dicyclomine HCl (Dicyclomine HCl) 10 Mg Capsule, 10 MG PO TID PRN for abdominal cramping, #20 CAP Prov:JUANITA DUNBAR MD 02/13/17 Ondansetron (Ondansetron Odt) 4 Mg Tab.rapdis, 4 MG PO Q6H PRN for NAUSEA AND/OR VOMITING, #30 TAB Prov:JUANITA DUNBAR MD 02/13/17 Meds reviewed: Yes Allergies Coded Allergies: Penicillins (Verified Allergy, Intermediate, 05/31/17) Sulfa (Sulfonamide Antibiotics) (Unverified Allergy, Intermediate, 05/31/17) Allergies Reviewed: Yes Labs/Studies Labs Reviewed: Reviewed by anesthesiologist test: N/A Pre-procedure Exam Airway: Adequate mouth opening, Adequate thyromental dist Mallampati: Mallampati II Teeth: Normal (missing lower right molars) Lung: Normal Heart: Normal ASA Physical Status ASA physical status: 3 Emergency: None Planned Anesthetic General/MAC: MAC Pre-operative Attestations Prior to commencing anesthesia and surgery, the patient was re-evaluated, there was verification of: *The patient's identity *The results of appropriate recent lab work and preoperative vital signs *The above evaluation not changing prior to induction *Anesthetic plan, risk benefits, alternative and complications discussed with patient/family; questions answered; patient/family understands, accepts and wishes to proceed. Whittling Room Operator used KALE MARKS Oct 29, 2018 07:56
[2018-10-29] MEDS ORDERED: ACETAMINOPHEN 500 MG TAB PO PRN (08:00)
[2018-10-29] MEDS ORDERED: ONDANSETRON 4 MG INJ IV PRN (08:00)
[2018-10-29] MEDS ORDERED: ALBUTEROL 0.083% (NEB) 2.5 MG/3 ML AMP HHN PRN (08:00)
[2018-10-29] MEDS ORDERED: FENTAnyl 50 MCG/ML VIAL IV PRN (08:00)
[2018-10-29 08:07] VITALS: BP 126/68; PULSE 62; RESP 18
[2018-10-29] MEDS ORDERED: FENTAnyl 50 MCG/ML VIAL ONE (08:30)
[2018-10-29] MEDS ORDERED: PROPOFOL 20 ML ONE ×2 (08:30→09:23)
[2018-10-29 09:55] VITALS: BP 122/76; RESP 16
--- NOTE | 2018-10-30 08:08 | PAC ---
Date/Time of Note Date/Time of Note DATE: 10/30/18 TIME: 08:08 Post-Anesthesia Notes Post-Anesthesia Note Last documented vital signs Vital Signs Date Temp Pulse Resp B/P (MAP) Pulse Ox O2 O2 Flow FiO2 Time Delivery Rate 10/29/18 98.0 64 16 122/76 97 Room Air 09:55 (91) 10/29/18 98.0 62 08:07 Activity: WNL Respiratory function: WNL Cardiovascular function: WNL Mental status: Baseline Pain reasonably controlled: Yes Hydration appropriate: Yes Nausea/Vomiting absent: No ALFONSO SANDOVAL MD Oct 30, 2018 08:08
== END 2018-10-29 11:45 | disposition home or self-care (01) ==
LOC: GIL 06:19
PROVIDERS: ATTEND Internal Medicine Gastroenterology
DX: Z86.010 Personal history of colon polyps (principal); K64.8 Other hemorrhoids; K64.4 Residual hemorrhoidal skin tags; K57.30 Diverticulosis of large intestine without perforation or abscess without bleeding; K29.50 Unspecified chronic gastritis without bleeding; K22.10 Ulcer of esophagus without bleeding
CPT/HCPCS: 43239; 45378; 88305; 88312; 88313; J3010

== ENCOUNTER 2018-12-24 09:19 | Observation (INO) | payer MEDICARE, OTHER ==
[~2018-12-24] VITALS: Ht 162.6 cm; Wt 77.5 kg
[~2018-12-24 09:19] MED LIST changes: -CEPH-443 PO; -CLIN300C10 PO; -DICY10CA40 PO; -IBUP-1542 PO; -IBUP800T48 PO; -MED4DP PO; -METAMUCIL1 PK1 PO; +NITR0.4T32 SL; -ONDA4TAB14 PO; +RANI-513 PO; -RANI25TA PO; -TRAM50TA2 PO; +VITAMINS
--- NOTE | 2018-12-24 11:16 | ERD ---
ER Documentation Chief Complaint Chief Complaint chest pain left arm pain n/v since yesterday HPI The patient is a 63-year-old female, presenting to the ER with multiple complaints. She complains of left-sided chest pain that radiates to the left again about 2 AM this morning. She took one nitroglycerin with some response about 4 AM, she had similar symptoms previously about 3 years ago where she had a cardiac cath at [facility]. She denies chest pain with vomiting/exertion/diaphoresis, dyspnea. She complains of left-sided abdominal pain with constipation for the last week, worse today. She does not smoke or drink She had EGD and colonoscopy recently that showed gastritis, Hemorrhoids, diverticulosis Past medical history: Hypertension, CAD, history of CVA, asthma, dyslipidemia, anxiety Past surgical history: Tubal ligation, hysterectomy ROS All systems reviewed and are negative except as per history of present illness. Medications Home Meds Reported Medications Omeprazole* (Omeprazole*) 40 Mg Capsule.dr, 40 MG PO DAILY, #30 CAP 12/24/18 Aspirin* (Aspirin* EC) 81 Mg Tablet.dr, 81 MG PO DAILY, TAB 12/24/18 Diltiazem Hcl* (Diltiazem XT) 180 Mg Capsule.er, 180 MG PO DAILY, #30 CAP 12/24/18 Alendronate Sodium* (Fosamax*) 70 Mg Tablet, 70 MG PO Q7D, #4 TAB 12/24/18 Nitroglycerin* (Nitroglycerin* SL) 0.4 Mg Tab.subl, 0.4 MG SL Q5MIN PRN for CHEST PAIN, BOTTLE 10/29/18 Ranitidine Hcl* (Ranitidine Hcl*) 75 Mg Tablet, 40 MG PO BID PRN for HEARTBURN, #60 TAB 10/29/18 Discontinued Reported Medications [Vitamins] No Conflict Check 10/29/18 Omeprazole* (Omeprazole*) 40 Mg Capsule.dr, 40 MG PO DAILY 07/06/13 Diltiazem Hcl (Diltia Xt) 180 Mg Capsule.cr, 180 MG PO DAILY 07/06/13 Aspirin (Asperdrink) 81 Mg Tablet.eff, 81 MG PO DAILY 07/06/13 Discontinued Scripts Diltiazem Hcl* (Cardizem LA*) 180 Mg Tab.sr.24h, 180 MG PO DAILY, #30 TAB.SA Prov:JUANITA DUNBAR MD 02/13/17 Allergies Allergies: Coded Allergies: Penicillins (Verified Allergy, Intermediate, 12/24/18) Sulfa (Sulfonamide Antibiotics) (Unverified Allergy, Intermediate, 12/24/18) PMhx/Soc History of Surgery: Yes (CARDAIC CATHERIZATION, TUBAL LIGATION, HYSTERECTOMY) Anesthesia Reaction: No Hx Neurological Disorder: Yes (STROKE) Hx Respiratory Disorders: Yes (ASTHMA) Hx Cardiac Disorders: Yes (HYPERTENSION) Hx Psychiatric Problems: No Hx Miscellaneous Medical Probl: Yes (HYPERLIPIDEMIA) Hx Alcohol Use: No Hx Substance Use: No Hx Tobacco Use: No Physical Exam Vitals Vital Signs Date Temp Pulse Resp B/P (MAP) Pulse Ox O2 O2 Flow FiO2 Time Delivery Rate 12/24/18 97.8 72 18 143/83 100 09:37 (103) Physical Exam Const: No acute distress. Head: Atraumatic. Eyes: Normal Conjunctiva. ENT: Normal External Ears, Nose and Mouth. Neck: Full range of motion. No meningismus. Resp: Clear to auscultation bilaterally. Cardio: Regular rate and rhythm. Abd: Soft, non distended, normal bowel sounds, vague and diffuse abdominal tenderness, more tenderness on the left lower quadrant, no rigidity, rebound, CVA tenderness Skin: No petechiae or rashes. Back: No midline or flank tenderness. Ext: No cyanosis, or edema. Neur: Awake and alert. No focal deficit Psych: Normal Mood and Affect. Result Diagram: 12/24/18 1219 12/24/18 1219 Results 24 hrs Laboratory Tests Test 12/24/18 12:19 12/24/18 12:23 White Blood Count 9.3 10^3/ul Red Blood Count 4.70 10^6/ul Hemoglobin 13.2 g/dl Hematocrit 40.0 % Mean Corpuscular Volume 85.1 fl Mean Corpuscular Hemoglobin 28.1 pg Mean Corpuscular Hemoglobin Concent 33.0 g/dl Red Cell Distribution Width 13.7 % Platelet Count 349 10^3/UL Mean Platelet Volume 9.8 fl Immature Granulocytes % 0.300 % Neutrophils % 66.4 % Lymphocytes % 22.9 % Monocytes % 8.1 % Eosinophils % 1.7 % Basophils % 0.6 % Nucleated Red Blood Cells % 0.0 /100WBC Immature Granulocytes # 0.030 10^3/ul Neutrophils # 6.1 10^3/ul Lymphocytes # 2.1 10^3/ul Monocytes # 0.8 10^3/ul Eosinophils # 0.2 10^3/ul Basophils # 0.1 10^3/ul Nucleated Red Blood Cells # 0.0 10^3/ul Sodium Level 142 mmol/L Potassium Level 4.8 mmol/L Chloride Level 105 mmol/L Carbon Dioxide Level 28 mmol/L Anion Gap 9 Blood Urea Nitrogen 15 mg/dl Creatinine 0.84 mg/dl Est Glomerular Filtrat Rate mL/min > 60 mL/min Glucose Level 96 mg/dl Calcium Level 10.2 mg/dl Total Bilirubin 0.3 mg/dl Direct Bilirubin 0.00 mg/dl Indirect Bilirubin 0.3 mg/dl Aspartate Amino Transf (AST/SGOT) 27 IU/L Alanine Aminotransferase (ALT/SGPT) 17 IU/L Alkaline Phosphatase 110 IU/L Troponin I < 0.012 ng/ml Total Protein 8.0 g/dl Albumin 4.5 g/dl Globulin 3.50 g/dl Albumin/Globulin Ratio 1.28 Lipase 146 U/L Bedside Urine pH (LAB) 6.5 Bedside Urine Protein (LAB) Trace Bedside Urine Glucose (UA) Negative Bedside Urine Ketones (LAB) Negative Bedside Urine Blood 2+ Bedside Urine Nitrite (LAB) Negative Bedside Urine Leukocyte Esterase (L 3+ Current Medications Medications Dose Sig/Kalpesh Start Time Status Last (Trade) Ordered Route PRN Stop Time Admin Dose Reason Admin Aspirin 324 mg ONCE ONCE 12/24/18 (Aspirin) PO 13:30 12/24/18 13:31 1 inch ONCE ONCE 12/24/18 Nitroglycerin TD 13:30 12/24/18 13:31 (Nitroglyceri n 2% Oint) 200 ml @ ONCE ONCE 12/24/18 Ciprofloxacin 200 mls/hr IVPB 13:30 12/24/18 / Dextrose 14:29 Procedures/[place] [id number] Radiology Main Line: [phone] DIAGNOSTIC IMAGING REPORT Patient: EMANUEL COOL : 1955 Age: 63 Sex: F MR #: [id number] DOS: 12/24/18 1142 Ordering MD: YANDEL MITCHELL MD Location: E/R Room/Bed: PROCEDURE: CT Abdomen and Pelvis without contrast. CLINICAL INDICATION: Abdominal pain. TECHNIQUE: CT scan of the abdomen and pelvis without contrast was performed on a multidetector high-resolution CT scanner. The patient was scanned without intravenous contrast. Coronal and sagittal reformatted images were obtained from the axial source images. Images were reviewed on a high-resolution PACS workstation. One or more of the following dose reduction techniques were used: Automated exposure control, adjustment of the mA and/or kV according to patient size, use of iterative reconstruction technique. DICOM images are available. The total exam CTDI equals 12.5 mGy and the total exam DLP equals 640.9 mGy-cm. COMPARISON: None available. FINDINGS: CT ABDOMEN: Visualized lung bases: No significant infiltrate or pleural/pericardial effusion. The heart size is normal. Liver: The liver is normal in size and demonstrates normal attenuation. No evidence of solid hepatic mass or intrahepatic ductal dilatation. Gallbladder and bile ducts: Unremarkable. Spleen: Unremarkable. Pancreas: Unremarkable. No ductal dilatation, mass, or peripancreatic stranding. Adrenal glands: Unremarkable. Kidneys: No hydronephrosis, stones, or solid lesions seen. Vasculature: No abdominal aortic aneurysm. Negative IVC. Lymph nodes: No adenopathy. GI: Scattered colonic diverticula are present without evidence of acute inflammation. There is no evidence of inflamed appendix. Negative terminal ileum and rectum. No evidence of obstruction. Negative sigmoid colon. Peritoneal cavity: No free fluid or free air. CT PELVIS: : Normal appearing bladder, distal ureters and ureterovesiculal junctions. The pelvic organs are unremarkable. Peritoneal cavity: No free fluid or free air. Lymph nodes: No adenopathy. Osseous structures: There is grade 1 anterolisthesis of L5-S1. No acute osseous injury. No lytic or blastic lesions. Other: There is a small fat-containing left inguinal hernia. IMPRESSION: 1. No evidence of acute abdominopelvic inflammatory process, mass or lymphadenopathy. 2. Diverticulosis. 3. Small fat-containing left inguinal hernia. 4. Grade 1 anterolisthesis of L5-S1. RPTAT: JJ .Maicol Braxton MD, MD Date Time Electronically viewed and signed by .Maicol Braxton MD, MD on 12/24/2018 12:56 .A/ CC: YANDEL MITCHELL MD [id number] [place] [id number] Radiology Main Line: [phone] DIAGNOSTIC IMAGING REPORT Patient: EMANUEL COOL : 1955 Age: 63 Sex: F MR #: [id number] DOS: 12/24/18 1142 Ordering MD: YANDEL MITCHELL MD Location: E/R Room/Bed: PROCEDURE: XR Chest. CLINICAL INDICATION: chest pain TECHNIQUE: Single frontal view of the chest was obtained COMPARISON: 07/06/13 FINDINGS: The heart and mediastinum are within normal limits. There is mild elevation of the right diaphragm. The lungs are clear. There is no pleural effusion or pneumothorax. RPTAT: AA IMPRESSION: No acute disease. .José Miguel Cabezas MD, MD Date Time Electronically viewed and signed by .José Miguel Cabezas MD, MD on 12/24/2018 12:14 .S/ CC: YANDEL MITCHELL MD [id number] EKG: Read by emergency physician Rate/Rhythm: Normal Sinus Rhythm 72 beats/min QRS, ST, T-waves: No ST elevation, no T inversion, LAE, LAD Impression: Abnormal EKG MEDICAL MAKING DECISION: The patient is a 63-year-old female with multiple cardiac risk factors, presenting with acute chest pain that is concerning for acute ACS, was treated with aspirin 324 mg p.o. and 1 inch of nitroglycerin ointment to the chest wall for acute chest pain and Cipro IV for acute cystitis, urine culture requested The differential diagnoses for acute chest pain considered include but are not limited to acute coronary syndrome, acute myocardial infarction, pericarditis, pulmonary embolism, aortic dissection, pneumonia, pleural effusion, pneu mothorax, GERD, chest wall pain. The differential diagnoses for acute abdominal pain considered include but are not limited to cholelithiasis, cholecystitis, choledocholithiasis, cholangitis, pancreatitis, hepatitis, gastritis, peptic ulcer disease, gastric ulcer, appendicitis, cystitis, diverticulitis, partial small bowel obstruction. Departure Diagnosis: Primary Impression: Chest pain Additional Impression: UTI (urinary tract infection) Condition: Stable Comments I discussed the findings with the patient. I discussed the patient with Dr Jaramillo at 1:15p , who was made aware of the lab, the treatment, the patient condition. The patient is admitted to [facility] Disclaimer: Inadvertent spelling and grammatical errors are likely due to EHR/dictation software use and do not reflect on the overall quality of patient care. Also, please note that the electronic time recorded on this note does not necessarily reflect the actual time of the patient encounter. YANDEL MITCHELL MD December 24, 2018 11:16
[2018-12-24] MEDS ORDERED: ALEN70TA5 PO (12:27)
[2018-12-24] MEDS ORDERED: DILT180C94 PO (12:28)
[2018-12-24] MEDS ORDERED: ASPI-817 PO (12:28)
[2018-12-24] MEDS ORDERED: OMEP40CA6 PO (12:28)
[2018-12-24] MEDS ORDERED: ASPIRIN 81 MG TAB PO ONE (13:30)
[2018-12-24] MEDS ORDERED: CIPROFLOXACIN 400MG/D5W 200 ML IVPB ONE (13:30)
[2018-12-24] MEDS ORDERED: NITROGLYCERIN 2% 1 GM OINT PKT TD ONE (13:30)
[2018-12-24] MEDS ORDERED: ONDANSETRON 4 MG INJ IV STA (15:25)
--- NOTE | 2018-12-24 17:17 | HP ---
Date/Time of Note Date/Time of Note DATE: 12/24/18 TIME: 17:12 Assessment/Plan VTE Prophylaxis SCD applied (from Nsg): Yes Pharmacological prophylaxis: NA/contraindicated Pharm contraindication: low risk/ambulating Lines/Catheters IV Catheter Type (from Nrsg): Saline Lock Assessment/Plan Hospital Course 1. Abdominal pain Patient with 1 week of abdominal pain with associated nausea, vomiting and diarrhea CT abdomen shows no acute findings GI consultation Patient with diffuse tenderness with even mild palpation, consider fibromyalgia IV fluids Continue home PPI, add Carafate 2. History of coronary disease status post PCI Continue home aspirin Prophylaxis: SCDs Result Diagram: 12/24/18 1219 12/24/18 1219 Results 24hrs Laboratory Tests Test 12/24/18 12:19 12/24/18 12:23 White Blood Count 9.3 Red Blood Count 4.70 Hemoglobin 13.2 Hematocrit 40.0 Mean Corpuscular Volume 85.1 Mean Corpuscular Hemoglobin 28.1 L Mean Corpuscular Hemoglobin Concent 33.0 Red Cell Distribution Width 13.7 Platelet Count 349 Mean Platelet Volume 9.8 Immature Granulocytes % 0.300 Neutrophils % 66.4 Lymphocytes % 22.9 Monocytes % 8.1 Eosinophils % 1.7 Basophils % 0.6 Nucleated Red Blood Cells % 0.0 Immature Granulocytes # 0.030 Neutrophils # 6.1 Lymphocytes # 2.1 Monocytes # 0.8 Eosinophils # 0.2 Basophils # 0.1 Nucleated Red Blood Cells # 0.0 Sodium Level 142 Potassium Level 4.8 Chloride Level 105 Carbon Dioxide Level 28 Anion Gap 9 Blood Urea Nitrogen 15 Creatinine 0.84 Est Glomerular Filtrat Rate mL/min > 60 Glucose Level 96 Calcium Level 10.2 Total Bilirubin 0.3 Direct Bilirubin 0.00 Indirect Bilirubin 0.3 Aspartate Amino Transf (AST/SGOT) 27 Alanine Aminotransferase (ALT/SGPT) 17 Alkaline Phosphatase 110 Troponin I < 0.012 Total Protein 8.0 Albumin 4.5 Globulin 3.50 H Albumin/Globulin Ratio 1.28 Lipase 146 Bedside Urine pH (LAB) 6.5 Bedside Urine Protein (LAB) Trace H Bedside Urine Glucose (UA) Negative Bedside Urine Ketones (LAB) Negative Bedside Urine Blood 2+ H Bedside Urine Nitrite (LAB) Negative Bedside Urine Leukocyte Esterase (L 3+ H HPI/ROS Admit Date/Time Admit Date/Time December 24, 2018 Hx of Present Illness Patient is a 63-year-old female with a history of coronary disease status post PCI 3 years ago, diverticulitis status post partial bowel resection 2 years ago. Patient presents with 1 week of nausea vomiting, diarrhea as well as abdominal pain exacerbated by eating. In the ER CT abdomen showed no acute findings and there is no evidence of sepsis. Patient denies such symptoms in the past, patient has no other complaints. ROS Constitutional: no complaints, improved Eyes: no complaints ENT: no complaints Respiratory: no complaints Cardiovascular: no complaints Gastrointestinal: pain, diarrhea, nausea, vomiting Genitourinary: no complaints Musculoskeletal: no complaints Skin: no complaints Neurologic: no complaints Endocrine: no complaints Lymphatic: no complaints Psychological: no complaints, nl mood/affect Immunologic: no complaints PMH/Family/Social Past Medical History Coronary disease, diverticulitis Coded Allergies: Penicillins (Verified Allergy, Intermediate, 12/24/18) Sulfa (Sulfonamide Antibiotics) (Unverified Allergy, Intermediate, 12/24/18) Past Surgical History Small bowel resection, PCI, tubal ligation Family History Significant Family History: hypertension Social History Alcohol Use: none Smoking Status: Never smoker Drug Use: none Exam/Review of Systems Vital Signs Vitals Vital Signs Date Temp Pulse Resp B/P (MAP) Pulse Ox O2 O2 Flow FiO2 Time Delivery Rate 12/24/18 76 20 124/75 99 Room Air 15:53 (91) 12/24/18 97.8 09:37 Exam Constitutional: alert, oriented Respiratory: clear to auscultation Cardiovascular: regular rate and rhythm Gastrointestinal: soft, tender; No distended Musculoskeletal: nl extremities to inspection JAYSHREE KHAN December 24, 2018 17:17
[2018-12-24] MEDS ORDERED: NACL 0.9% 3 ML SYG IV SCH (17:30)
[2018-12-24] MEDS ORDERED: NITROGLYCERIN (SL) 0.4 MG TAB SL PRN (17:30)
[2018-12-24] MEDS ORDERED: RANITIDINE 150 MG TAB PO PRN (17:30)
[2018-12-24] MEDS ORDERED: morphine 2 MG INJ IV PRN (17:30)
[2018-12-24] MEDS ORDERED: ZOLPIDEM 5 MG TAB PO PRN (17:30)
[2018-12-24] MEDS ORDERED: ACETAMINOPHEN 325 MG TAB PO PRN (17:30)
[2018-12-24] MEDS ORDERED: DOCUSATE SODIUM 100 MG CAP PO PRN (17:30)
[2018-12-24 17:54] VITALS: BP 107/63; PULSE 74
[2018-12-24 18:01] VITALS: Ht 162.6 cm; Wt 77.5 kg
[2018-12-24 18:29] VITALS: BP 116/64; PULSE 80; RESP 18
[2018-12-24 19:51] VITALS: BP 120/71; PULSE 75; RESP 18
[2018-12-24 20:00] VITALS: PULSE 81
[2018-12-24] MEDS: SUCRALFATE 1 GM TAB PO SCH (21:00)
[2018-12-24] MEDS: ONDANSETRON 4 MG INJ IV PRN (21:09)
[2018-12-24] MEDS: HYDROCODONE/APAP (5/325) TAB PO PRN (21:25)
[2018-12-24 23:33] VITALS: BP 107/55; PULSE 75; RESP 18
[2018-12-25] VITALS (10 sets, daily range): BP systolic 92–132; BP diastolic 50–67; PULSE 56–77; RESP 17–20
[2018-12-25] MEDS: HYDROCODONE/APAP (5/325) TAB PO PRN (05:47)
[2018-12-25] MEDS ORDERED: PANTOPRAZOLE (EC) 40 MG TAB PO SCH (06:00)
[2018-12-25] MEDS: SUCRALFATE 1 GM TAB PO SCH (08:22)
[2018-12-25] MEDS: DILTIAZEM (CD) 180 MG CAP PO SCH (08:22)
--- NOTE | 2018-12-25 12:12 | CONS ---
Assessment/Plan Assessment/Plan Hospital Course (Demo Recall) Summary Assessment and Plan: Assessment: Abdominal pain Recent EGD/Colonoscopy 10/29/18 -Esophageal ulcer, gastritis- bx positive for H.pylori -Diverticulosis/hemorrhoids Dyslipidemia CAD with hx of PCI Plan: Continue PPI/Carafate Patient denies starting treatment for H. pylori, with penicillin allergy will start quadruple therapy Metronidazole 250 mg p.o. 4 times daily x14 days Bismuth subsalicylate 524 mg po 4 times daily x14 days (tablets not available here/ only liquid available) Doxycycline 100 mg p.o. twice daily x14 days We will add Levsin [id number] 0.125 mg sublingual Change diet to high-fiber/GERD Pt will need to f/u with GI and recheck H. pylori breath test 6 weeks after completing treatment to assess if bacteria has been eradicated Seen in collaboration with Dr. Allison CC: DANYELL ALLISON MD ; Consultation Date/Type/Reason Admit Date/Time December 24, 2018 Date/Time of Note DATE: 12/25/18 TIME: 12:11 Hx of Present Illness This is a 63-year-old female with a history of coronary disease status post PCI 3 years ago, diverticulitis status post partial bowel resection 2 years ago. Who presented to the ED with c/o nausea/vomiting and diarrhea x1 week. With work-up including CT abdomen/pelvis without contrast showing no evidence of acute abdominal pelvic inflammatory process mass or lymphadenopathy, diverticulosis, fat-containing left inguinal hernia, grade 1 anterolisthesis of L5-S1. Additionally labs were evaluated normal hematology, normal LFTs patient with elevated triglycerides/cholesterol. Of note patient recently had an EGD/colonoscopy 10/29/18 revealed diverticulosis of the large intestines, hemorrhoids. EGD revealed ulcer of the esophagus, gastritis and biopsies were positive for H. pylori. Patient states she has not started treatment for H. pylori. She also denies recent travel outside [place] or antibiotic use other than what she received in the ER nor has she been around someone with similar illness. We discussed GERD diet as well as reflux precautions we will start H. pylori quadruple treatment patient has allergies to penicillin. Patient verbalized understanding is agreeable additionally she notes that she takes the medication underneath her tongue to help with abdominal pain I am assuming this is high levsin therefore we will restart this medication while hospitalized as well. Currently no plan for endoscopic evaluation. Past Medical History Home Meds Reported Medications Omeprazole* (Omeprazole*) 40 Mg Capsule.dr, 40 MG PO DAILY, #30 CAP 12/24/18 Aspirin* (Aspirin* EC) 81 Mg Tablet.dr, 81 MG PO DAILY, TAB 12/24/18 Diltiazem Hcl* (Diltiazem XT) 180 Mg Capsule.er, 180 MG PO DAILY, #30 CAP 12/24/18 Alendronate Sodium* (Fosamax*) 70 Mg Tablet, 70 MG PO Q7D, #4 TAB 12/24/18 Nitroglycerin* (Nitroglycerin* SL) 0.4 Mg Tab.subl, 0.4 MG SL Q5MIN PRN for CHEST PAIN, BOTTLE 10/29/18 Ranitidine Hcl* (Ranitidine Hcl*) 75 Mg Tablet, 40 MG PO BID PRN for HEARTBURN, #60 TAB 10/29/18 Discontinued Reported Medications [Vitamins] No Conflict Check 10/29/18 Omeprazole* (Omeprazole*) 40 Mg Capsule.dr, 40 MG PO DAILY 07/06/13 Diltiazem Hcl (Diltia Xt) 180 Mg Capsule.cr, 180 MG PO DAILY 07/06/13 Aspirin (Asperdrink) 81 Mg Tablet.eff, 81 MG PO DAILY 07/06/13 Discontinued Scripts Diltiazem Hcl* (Cardizem LA*) 180 Mg Tab.sr.24h, 180 MG PO DAILY, #30 TAB.SA Prov:JUANITA DUNBAR MD 02/13/17 Medications Current Medications IV Flush (NS 3 ml) 3 ml PER PROTOCOL IV ; Start 12/24/18 at 17:30 Ondansetron HCl (Zofran Inj) 4 mg Q6H PRN IV NAUSEA/VOMITING Last administered on 12/24/18at 21:09; Admin Dose 4 MG; Start 12/24/18 at 17:30 Acetaminophen (Tylenol Tab) 650 mg Q6H PRN PO .PAIN 1-3 OR TEMP Last administered on 12/25/18at 01:34; Admin Dose 650 MG; Start 12/24/18 at 17:30 Acetaminophen/ Hydrocodone Bitart ([place] (5/325)) 1 tab Q6H PRN PO .MOD PAIN 4- 6 Last administered on 12/25/18at 05:47; Admin Dose 1 TAB; Start 12/24/18 at 17:30 Morphine Sulfate (morphine) 2 mg Q4H PRN IV .SEVERE PAIN 7-10; Start 12/24/18 at 17:30 Docusate Sodium (Colace) 100 mg Q12H PRN PO .CONSTIPATION; Start 12/24/18 at 17:30 Zolpidem Tartrate (Ambien) 5 mg QHS PRN PO .INSOMNIA Last administered on 12/24/18at 21:09; Admin Dose 5 MG; Start 12/24/18 at 17:30 Diltiazem HCl (Cardizem Cd) 180 mg DAILY PO Last administered on 12/25/18at 08:22; Admin Dose 180 MG; Start 12/25/18 at 09:00 Nitroglycerin (Nitroglycerin (Sl Tab) 0.4 Mg) 1 tab [id number] PRN SL CHEST PAIN; Start 12/24/18 at 17:30 Ranitidine HCl (Zantac) 150 mg BID PRN PO HEARTBURN; Start 12/24/18 at 17:30 Pantoprazole (Protonix Tab) 40 mg DAILY@06 PO Last administered on 12/25/18at 05:47; Admin Dose 40 MG; Start 12/25/18 at 06:00 Sucralfate (Carafate) 1 gm QID PO Last administered on 12/25/18at 08:22; Admin Dose 1 GM; Start 12/24/18 at 21:00 Allergies: Coded Allergies: Penicillins (Verified Allergy, Intermediate, 12/24/18) Sulfa (Sulfonamide Antibiotics) (Unverified Allergy, Intermediate, 12/24/18) Social History Alcohol Use: none Smoking Status: Never smoker Drug Use: none Exam/Review of Systems Exam Vitals Vital Signs Date Temp Pulse Resp B/P (MAP) Pulse Ox O2 O2 Flow FiO2 Time Delivery Rate 12/25/18 97.5 58 18 92/50 (64) 96 11:00 12/24/18 Room Air 17:54 Intake and Output 12/24/18 12/24/18 12/25/18 1515:00 23:00 07:00 IntakeIntake Total 600 ml BalanceBalance 600 ml Constitutional: alert, oriented, obese Head: normocephalic Eyes: nl conjunctiva ENMT: nl external ears & nose, nl lips & teeth Neck: supple, non-tender Respiratory: clear to auscultation, normal air movement Cardiovascular: regular rate and rhythm, nl pulses Gastrointestinal: soft, bowel sounds, tender Musculoskeletal: nl extremities to inspection Extremities: normal pulses Results Result Diagram: 12/25/18 0554 12/25/18 0554 Results 24hrs Laboratory Tests Test 12/24/18 12:19 12/24/18 12:23 12/25/18 05:54 White Blood Count 9.3 9.9 Red Blood Count 4.70 4.46 Hemoglobin 13.2 12.4 Hematocrit 40.0 37.8 Mean Corpuscular Volume 85.1 84.8 Mean Corpuscular Hemoglobin 28.1 L 27.8 L Mean Corpuscular Hemoglobin Concent 33.0 32.8 Red Cell Distribution Width 13.7 13.8 Platelet Count 349 324 Mean Platelet Volume 9.8 10.1 Immature Granulocytes % 0.300 0.300 Neutrophils % 66.4 66.0 Lymphocytes % 22.9 22.7 Monocytes % 8.1 7.7 Eosinophils % 1.7 2.7 Basophils % 0.6 0.6 Nucleated Red Blood Cells % 0.0 0.0 Immature Granulocytes # 0.030 0.030 Neutrophils # 6.1 6.6 Lymphocytes # 2.1 2.3 Monocytes # 0.8 0.8 Eosinophils # 0.2 0.3 Basophils # 0.1 0.1 Nucleated Red Blood Cells # 0.0 0.0 Sodium Level 142 138 Potassium Level 4.8 5.1 Chloride Level 105 102 Carbon Dioxide Level 28 28 Anion Gap 9 8 Blood Urea Nitrogen 15 19 Creatinine 0.84 0.93 Est Glomerular Filtrat Rate mL/min > 60 > 60 Glucose Level 96 83 Calcium Level 10.2 9.6 Total Bilirubin 0.3 Direct Bilirubin 0.00 Indirect Bilirubin 0.3 Aspartate Amino Transf (AST/SGOT) 27 Alanine Aminotransferase (ALT/SGPT) 17 Alkaline Phosphatase 110 Troponin I < 0.012 < 0.012 Total Protein 8.0 Albumin 4.5 Globulin 3.50 H Albumin/Globulin Ratio 1.28 Lipase 146 Bedside Urine pH (LAB) 6.5 Bedside Urine Protein (LAB) Trace H Bedside Urine Glucose (UA) Negative Bedside Urine Ketones (LAB) Negative Bedside Urine Blood 2+ H Bedside Urine Nitrite (LAB) Negative Bedside Urine Leukocyte Esterase (L 3+ H Hemoglobin A1c 5.5 Phosphorus Level 4.0 Magnesium Level 2.2 Triglycerides Level 155 H Cholesterol Level 212 H LDL Cholesterol, Calculated 133 HDL Cholesterol 48 Cholesterol/HDL Ratio 4.4 Medications Medication Current Medications IV Flush (NS 3 ml) 3 ml PER PROTOCOL IV ; Start 12/24/18 at 17:30 Ondansetron HCl (Zofran Inj) 4 mg Q6H PRN IV NAUSEA/VOMITING Last administered on 12/24/18 21:09; Admin Dose 4 MG; Start 12/24/18 at 17:30 Acetaminophen (Tylenol Tab) 650 mg Q6H PRN PO .PAIN 1-3 OR TEMP Last administered on 12/25/18 01:34; Admin Dose 650 MG; Start 12/24/18 at 17:30 Acetaminophen/ Hydrocodone Bitart ([place] (5/325)) 1 tab Q6H PRN PO .MOD PAIN 4- 6 Last administered on 12/25/18 05:47; Admin Dose 1 TAB; Start 12/24/18 at 17:30 Morphine Sulfate (morphine) 2 mg Q4H PRN IV .SEVERE PAIN 7-10; Start 12/24/18 at 17:30 Docusate Sodium (Colace) 100 mg Q12H PRN PO .CONSTIPATION; Start 12/24/18 at 17:30 Zolpidem Tartrate (Ambien) 5 mg QHS PRN PO .INSOMNIA Last administered on 12/24 21:09; Admin Dose 5 MG; Start 12/24/18 at 17:30 Diltiazem HCl (Cardizem Cd) 180 mg DAILY PO Last administered on 12/25/18at 08:22; Admin Dose 180 MG; Start 12/25/18 at 09:00 Nitroglycerin (Nitroglycerin (Sl Tab) 0.4 Mg) 1 tab [id number] PRN SL CHEST PAIN; Start 12/24/18 at 17:30 Ranitidine HCl (Zantac) 150 mg BID PRN PO HEARTBURN; Start 12/24/18 at 17:30 Pantoprazole (Protonix Tab) 40 mg DAILY@06 PO Last administered on 12/25/18at 05:47; Admin Dose 40 MG; Start 12/25/18 at 06:00 Sucralfate (Carafate) 1 gm QID PO Last administered on 12/25/18at 08:22; Admin Dose 1 GM; Start 12/24/18 at 21:00 ANKIT DAVID December 25, 2018 12:12
[2018-12-25] MEDS ORDERED: BISMUTH SUBSALICYLATE 120 ML BTL PO SCH (13:00)
[2018-12-25] MEDS: SUCRALFATE (100 MG/ML) 10ML CUP PO SCH ×3 (13:10→21:03)
[2018-12-25] MEDS: HYOSCYAMINE 0.125 MG SUBL TAB PO SCH ×3 (13:13→21:03)
--- NOTE | 2018-12-25 14:25 | PN ---
Date/Time of Note Date/Time of Note DATE: 12/25/18 TIME: 14:22 Assessment/Plan VTE Prophylaxis Risk score (from Ns)>0 risk: 3 SCD applied (from Ns): Yes Pharmacological prophylaxis: NA/contraindicated Pharm contraindication: other Lines/Catheters [facility]from [facility] Saline Lock Assessment/Plan Hospital Course 1. Abdominal pain Patient with 1 week of abdominal pain with associated nausea, vomiting and diarrhea CT abdomen shows no acute findings GI consultation obtained Patient with diffuse tenderness with even mild palpation, consider fibromyalgia IV fluids Continue home PPI, add Carafate 2. History of coronary disease status post PCI Continue home aspirin 3. Atypical chest pain secondary to muscular pain Pain is reproducible with mild palpation, troponins are negative Prophylaxis: SCDs Result Diagram: 12/25/1854 12/25/18 0554 Results 24hrs Laboratory Tests Test 12/25/18 05:54 White Blood Count 9.9 Red Blood Count 4.46 Hemoglobin 12.4 Hematocrit 37.8 Mean Corpuscular Volume 84.8 Mean Corpuscular Hemoglobin 27.8 L Mean Corpuscular Hemoglobin Concent 32.8 Red Cell Distribution Width 13.8 Platelet Count 324 Mean Platelet Volume 10.1 Immature Granulocytes % 0.300 Neutrophils % 66.0 Lymphocytes % 22.7 Monocytes % 7.7 Eosinophils % 2.7 Basophils % 0.6 Nucleated Red Blood Cells % 0.0 Immature Granulocytes # 0.030 Neutrophils # 6.6 Lymphocytes # 2.3 Monocytes # 0.8 Eosinophils # 0.3 Basophils # 0.1 Nucleated Red Blood Cells # 0.0 Sodium Level 138 Potassium Level 5.1 Chloride Level 102 Carbon Dioxide Level 28 Anion Gap 8 Blood Urea Nitrogen 19 Creatinine 0.93 Est Glomerular Filtrat Rate mL/min > 60 Glucose Level 83 Hemoglobin A1c 5.5 Calcium Level 9.6 Phosphorus Level 4.0 Magnesium Level 2.2 Troponin I < 0.012 Triglycerides Level 155 H Cholesterol Level 212 H LDL Cholesterol, Calculated 133 HDL Cholesterol 48 Cholesterol/HDL Ratio 4.4 Subjective 24 Hr Interval Summary Gastrointestinal: pain Exam/Review of Systems Exam Vitals Vital Signs Date Temp Pulse Resp B/P (MAP) Pulse Ox O2 O2 Flow FiO2 Time Delivery Rate 12/25/18 97.5 58 18 92/50 (64) 96 11:00 12/24/18 Room Air 17:54 Intake and Output 5/02/0612/24/18 12/25/18 1515:00 23:00 07:00 IntakeIntake Total 600 ml BalanceBalance 600 ml Constitutional: alert, oriented Respiratory: clear to auscultation Cardiovascular: regular rate and rhythm Gastrointestinal: soft; No distended Musculoskeletal: nl extremities to inspection Results Results 24hrs Laboratory Tests Test 12/25/18 05:54 White Blood Count 9.9 Red Blood Count 4.46 Hemoglobin 12.4 Hematocrit 37.8 Mean Corpuscular Volume 84.8 Mean Corpuscular Hemoglobin 27.8 L Mean Corpuscular Hemoglobin Concent 32.8 Red Cell Distribution Width 13.8 Platelet Count 324 Mean Platelet Volume 10.1 Immature Granulocytes % 0.300 Neutrophils % 66.0 Lymphocytes % 22.7 Monocytes % 7.7 Eosinophils % 2.7 Basophils % 0.6 Nucleated Red Blood Cells % 0.0 Immature Granulocytes # 0.030 Neutrophils # 6.6 Lymphocytes # 2.3 Monocytes # 0.8 Eosinophils # 0.3 Basophils # 0.1 Nucleated Red Blood Cells # 0.0 Sodium Level 138 Potassium Level 5.1 Chloride Level 102 Carbon Dioxide Level 28 Anion Gap 8 Blood Urea Nitrogen 19 Creatinine 0.93 Est Glomerular Filtrat Rate mL/min > 60 Glucose Level 83 Hemoglobin A1c 5.5 Calcium Level 9.6 Phosphorus Level 4.0 Magnesium Level 2.2 Troponin I < 0.012 Triglycerides Level 155 H Cholesterol Level 212 H LDL Cholesterol, Calculated 133 HDL Cholesterol 48 Cholesterol/HDL Ratio 4.4 Medications Medication Current Medications IV Flush (NS 3 ml) 3 ml PER PROTOCOL IV ; Start 12/24/18 at 17:30 Ondansetron HCl (Zofran Inj) 4 mg Q6H PRN IV NAUSEA/VOMITING Last administered on 12/24/18at 21:09; Admin Dose 4 MG; Start 12/24/18 at 17:30 Acetaminophen (Tylenol Tab) 650 mg Q6H PRN PO .PAIN 1-3 OR TEMP Last administered on 12/25/18at 01:34; Admin Dose 650 MG; Start 12/24/18 at 17:30 Acetaminophen/ Hydrocodone Bitart ([place] (5/325)) 1 tab Q6H PRN PO .MOD PAIN 4- 6 Last administered on 12/25/18at 05:47; Admin Dose 1 TAB; Start 12/24/18 at 17:30 Morphine Sulfate (morphine) 2 mg Q4H PRN IV .SEVERE PAIN 7-10; Start 12/24/18 at 17:30 Docusate Sodium (Colace) 100 mg Q12H PRN PO .CONSTIPATION; Start 12/24/18 at 17:30 Zolpidem Tartrate (Ambien) 5 mg QHS PRN PO .INSOMNIA Last administered on 12/24/18at 21:09; Admin Dose 5 MG; Start 12/24/18 at 17:30 Diltiazem HCl (Cardizem Cd) 180 mg DAILY PO Last administered on 12/25/18at 08:22; Admin Dose 180 MG; Start 12/25/18 at 09:00 Nitroglycerin (Nitroglycerin (Sl Tab) 0.4 Mg) 1 tab [id number] PRN SL CHEST PAIN; Start 12/24/18 at 17:30 Ranitidine HCl (Zantac) 150 mg BID PRN PO HEARTBURN; Start 12/24/18 at 17:30 Sucralfate (Carafate Susp) 1 gm QID PO Last administered on 12/25/18at 13:10; Admin Dose 1 GM; Start 12/25/18 at 13:00 Hyoscyamine (Levsin (Sl)) 0.125 mg Q4H PO Last administered on 12/25/18at 13:13; Admin Dose 0.125 MG; Start 12/25/18 at 13:00 Pantoprazole (Protonix Tab) 40 mg BID PO ; Start 12/25/18 at 21:00 Metronidazole (Flagyl) 250 mg Q6 PO ; Start 12/25/18 at 18:00 Doxycycline Hyclate (Vibramycin) 100 mg BID PO ; Start 12/25/18 at 21:00 Bismuth Subsalicylate (Pepto-Bismol) 30 ml QID PO ; Start 12/25/18 at 17:00 JAYSHREE KHAN December 25, 2018 14:25
[2018-12-25] MEDS: metroNIDAZOLE 250 MG TAB PO SCH (17:18)
[2018-12-25] MEDS: BISMUTH SUBSALICYLATE 240 ML BTL PO SCH ×2 (17:18→21:02)
[2018-12-25] MEDS: PANTOPRAZOLE (EC) 40 MG TAB PO SCH (21:02)
[2018-12-25] MEDS: DOXYCYCLINE 100 MG TAB PO SCH (21:02)
[2018-12-26 01:08] VITALS: BP 103/52; PULSE 63; RESP 18
[2018-12-26] MEDS: metroNIDAZOLE 250 MG TAB PO SCH ×3 (01:13→13:01)
[2018-12-26] MEDS: HYOSCYAMINE 0.125 MG SUBL TAB PO SCH ×4 (01:13→13:01)
[2018-12-26 07:49] VITALS: BP 129/62; PULSE 71; RESP 16
[2018-12-26] MEDS: DILTIAZEM (CD) 180 MG CAP PO SCH (08:45)
[2018-12-26] MEDS: SUCRALFATE (100 MG/ML) 10ML CUP PO SCH (08:46)
[2018-12-26] MEDS: DOXYCYCLINE 100 MG TAB PO SCH (08:46)
[2018-12-26] MEDS: PANTOPRAZOLE (EC) 40 MG TAB PO SCH (08:46)
[2018-12-26] MEDS: BISMUTH SUBSALICYLATE 240 ML BTL PO SCH ×2 (08:51→13:01)
[2018-12-26] MEDS: ONDANSETRON 4 MG INJ IV PRN (08:57)
--- NOTE | 2018-12-26 10:48 | PN ---
Date/Time of Note Date/Time of Note DATE: 12/26/18 TIME: 10:47 Assessment/Plan VTE Prophylaxis Risk score (from Nsg)>0 risk: 3 SCD applied (from Nsg): Yes Pharmacological prophylaxis: other (scds) Lines/Catheters IV Catheter Type (from Nrsg): Saline Lock Assessment/Plan Hospital Course Summary Assessment and Plan: Assessment: Abdominal pain- improved with Levsin -IBS? Chest pain- likely muscular- pain worse with massage/palpation -Trop x2 neg Recent EGD/Colonoscopy 10/29/18 -Esophageal ulcer, gastritis- bx positive for H.pylori -Diverticulosis/hemorrhoids Dyslipidemia CAD with hx of PCI Plan: Continue PPI Patient denies starting treatment for H. pylori, with penicillin allergy will start quadruple therapy Metronidazole 250 mg p.o. 4 times daily x14 days Bismuth subsalicylate 524 mg po 4 times daily x14 days (tablets not available here/ only liquid available) Doxycycline 100 mg p.o. twice daily x14 days Continue Levsin [id number] 0.125 mg sublingual Change diet to high-fiber/GERD Pt will need to f/u with GI and recheck H. pylori breath test 6 weeks after completing treatment to assess if bacteria has been eradicated No BM since Monday - will add MiraLAX Patient seen in collaboration with Dr. Allison Subjective: Course reviewed with nursing staff Patient interviewed and examined All labs, imaging and other results reviewed The patient states her abd pain has improved with the start of Levsin She now c/o leg cramps- (not new has been off and on for several months) and chest pain- which is more tenderness with massage/palpation, likely muscular in etiology. Tolerating her diet well vital signs are stable when she will go home. PHYSICAL EXAMINATION: GENERAL: Well developed, well nourished, alert & oriented x 3, in no acute di stress SKIN: No lesions HEAD: Normocephalic, atraumatic, no tenderness. EYES: Pupils equal reactive to light and accommodation, no discharge. EARS/NOSE AND THROAT: Ears normal, nose normal. NECK: Supple, no masses. CHEST: Inspection within normal limits. CARDIOVASCULAR: Heart: Regular rate and rhythm RESPIRATORY: Lungs clear to auscultation GASTROINTESTINAL AND LIVER: Abdomen: Soft, non tenderness, non-distended, no hernias, no masses, no organomegaly, no ascites, no guarding, no rebound tendern ess, normoactive bowel sounds. Rectal: Deferred. EXTREMITIES: No cyanosis, clubbing or edema. Result Diagram: 12/25/1854 12/25/18553 Exam/Review of Systems Exam Vitals Vital Signs Date Temp Pulse Resp B/P (MAP) Pulse Ox O2 O2 Flow FiO2 Time Delivery Rate 12/26/18 98.0 71 16 129/62 96 Room Air 07:49 (84) 12/25/18 2.0 18:47 Intake and Output 12/25/18 12/25/18 12/26/18 1414:59 22:59 06:59 IntakeIntake Total 800 ml BalanceBalance 800 ml Medications Medication Current Medications IV Flush (NS 3 ml) 3 ml PER PROTOCOL IV ; Start 12/24/18 at 17:30 Ondansetron HCl (Zofran Inj) 4 mg Q6H PRN IV NAUSEA/VOMITING Last administered on 12/26/18 08:57; Admin Dose 4 MG; Start 12/24/18 at 17:30 Acetaminophen (Tylenol Tab) 650 mg Q6H PRN PO .PAIN 1-3 OR TEMP Last administered on 12/25/18 01:34; Admin Dose 650 MG; Start 12/24/18 at 17:30 Acetaminophen/ Hydrocodone Bitart ([place] (5/325)) 1 tab Q6H PRN PO .MOD PAIN 4- 6 Last administered on 12/25/18at 05:47; Admin Dose 1 TAB; Start 12/24/18 at 17:30 Morphine Sulfate (morphine) 2 mg Q4H PRN IV .SEVERE PAIN 7-10; Start 12/24/18 at 17:30 Docusate Sodium (Colace) 100 mg Q12H PRN PO .CONSTIPATION; Start 12/24/18 at 17:30 Zolpidem Tartrate (Ambien) 5 mg QHS PRN PO .INSOMNIA Last administered on 12/24/18 21:09; Admin Dose 5 MG; Start 12/24/18 at 17:30 Diltiazem HCl (Cardizem Cd) 180 mg DAILY PO Last administered on 12/26/18 08:45; Admin Dose 180 MG; Start 12/25/18 at 09:00 Nitroglycerin (Nitroglycerin (Sl Tab) 0.4 Mg) 1 tab [id number] PRN SL CHEST PAIN Last administered on 12/25/18 18:46; Admin Dose 1 TAB; Start 12/24/18 at 17:30 Ranitidine HCl (Zantac) 150 mg BID PRN PO HEARTBURN; Start 12/24/18 at 17:30 Sucralfate (Carafate Susp) 1 gm QID PO Last administered on 12/26/18 08:46; Adm in Dose 1 GM; Start 12/25/18 at 13:00 Hyoscyamine (Levsin (Sl)) 0.125 mg Q4H PO Last administered on 12/26/18 08:46; Admin Dose 0.125 MG; Start 12/25/18 at 13:00 Pantoprazole (Protonix Tab) 40 mg BID PO Last administered on 12/26/18 08:46; Admin Dose 40 MG; Start 12/25/18 at 21:00 Metronidazole (Flagyl) 250 mg Q6 PO Last administered on 12/26/18 05:40; Admin Dose 250 MG; Start 12/25/18 at 18:00 Doxycycline Hyclate (Vibramycin) 100 mg BID PO Last administered on 12/26/18 08:46; Admin Dose 100 MG; Start 12/25/18 at 21:00 Bismuth Subsalicylate (Pepto-Bismol) 30 ml QID PO Last administered on 12/26/18 08:51; Admin Dose 30 ML; Start 12/25/18 at 17:00 ANKIT DAVID December 26, 2018 10:48
[2018-12-26] MEDS ORDERED: POLYETHYLENE GLYCOL 17 GM PACKET PO SCH (11:00)
[2018-12-26] MEDS ORDERED: HYOS0.1297 PO (11:19)
[2018-12-26] MEDS ORDERED: OMEP40CA6 PO (11:19)
[2018-12-26] MEDS ORDERED: METR250T31 PO (11:19)
[2018-12-26] MEDS ORDERED: DOXY100T2 PO (11:19)
[2018-12-26] MEDS ORDERED: BISM262O20 PO (11:19)
[2018-12-26] MEDS ORDERED: PANT40TA4 PO (11:19)
--- NOTE | 2018-12-26 11:22 | PDOCDIS ---
Discharge Instructions CONDITION [id number] Patient Condition: [id number] Good HOME CARE INSTRUCTIONS: [id number] Diet Instructions: [id number] Modified Fat ACTIVITY: [id number] Activity Restrictions: [id number] No Restrictions FOLLOW UP/APPOINTMENTS Follow-up Plan FOLLOW UP WITH YOUR PCP IN 1-2 WEEKS, FOLLOW UP WITH DR WEST IN 6 WEEKS TO Recheck H. pylori breath test after completing treatment to assess if bacteria has been eradicated JAYSHREE KHAN December 26, 2018 11:22
[2018-12-26] MEDS ORDERED: DILT180C94 PO (11:29)
[2018-12-26] MEDS ORDERED: ASPI-817 PO (11:29)
[2018-12-26] MEDS ORDERED: ALEN70TA5 PO (11:29)
[2018-12-26] MEDS ORDERED: NITR0.4T32 SL (11:29)
--- NOTE | 2018-12-26 13:34 | RADRPT ---
Vent Rate: 83 bpm RR Interval: 0 msec LA Interval: 158 msec QRS Duration: 80 msec QT Interval: 376 msec QTC Interval: 441 msec P-R-T [place]: 28 - -25 - 81 degrees Normal sinus rhythm Inferior infarct , age undetermined Abnormal ECG Electronically Signed By: Ralph Vences
--- NOTE | 2018-12-26 14:06 | DS ---
Date/Time of Note Date/Time of Note DATE: 12/26/18 TIME: 13:59 Discharge Summary Admission/Discharge Info Admit Date/Time December 24, 2018 at 13:19 Discharge Date/Time December 26, 2018 Discharge Diagnosis 1. Abdominal pain Patient with recent EGD and colonoscopy that showed esophageal ulcer, gastritis with biopsy positive for H. pylori as well as diverticulosis and hemorrhoids CT abdomen shows no acute findings GI consultation appreciated DC with H. pylori antibiotic therapy follow-up with fur cleaner Dr. West for H. pylori breath test Patient with diffuse tenderness throughout the abdomen and chest with even mild palpation, consider fibromyalgia, outpatient rheumatology follow-up 2. History of coronary disease status post PCI Continue home aspirin 3. Atypical chest pain secondary to muscular pain Pain is reproducible with mild palpation, troponins and EKG are negative for ischemia Patient Condition: Good Hospital Course Patient is a 63-year-old female with a history of coronary disease status post PCI 3 years ago, hypertension. Patient presents with 1 week of nausea vomiting, diarrhea as well as abdominal pain exacerbated by eating. In the ER CT abdomen showed no acute findings and there is no evidence of sepsis. Patient did have a recent EGD and colonoscopy that showed esophageal ulcer, gastritis with biopsy positive for H. pylori, hemorrhoids and diverticulosis. Patient had not yet been started on triple antibiotic therapy for H. pylori which was initiated by GI. Patient's pain was atypical and was diffuse throughout the abdomen particular points, in addition patient continued to have atypical chest pain which was reproducible with only mild palpation, degree of tenderness and diffuseness was suspicious for fibromyalgia. Patient was stable for DC, on the day of discharge patient's vitals, labs and physical exam are stable. Home Meds Active Scripts Aspirin* (Aspirin* EC) 81 Mg Tablet.dr, 81 MG PO DAILY, #90 TAB Prov:JAYSHREE KHAN 12/26/18 Diltiazem Hcl* (Diltiazem XT) 180 Mg Capsule.er, 180 MG PO DAILY, #60 CAP Prov:JAYSHREE KHAN 12/26/18 Alendronate Sodium* (Fosamax*) 70 Mg Tablet, 70 MG PO Q7D, #8 TAB Prov:JAYSHREE KHAN 12/26/18 Nitroglycerin* (Nitroglycerin* SL) 0.4 Mg Tab.subl, 0.4 MG SL Q5MIN PRN for CHEST PAIN, #30 BOTTLE Prov:BILLJAYSHREE 12/26/18 Pantoprazole* (Pantoprazole*) 40 Mg Tablet.dr, 40 MG PO BID for 14 Days, #28 TAB Prov:BILLJAYSHREE 12/26/18 Bismuth Subsalicylate (Bismatrol) 262 Mg/15 Ml Oral.susp, 30 ML PO QID for 14 Days, #56 TAB Prov:JAYSHREE KHAN 12/26/18 Hyoscyamine Sulfate* (Hyoscyamine Sulfate*) 0.125 Mg Tab.subl, 0.125 MG PO Q4H PRN for Abdominal pain, #30 TAB Prov:JAYSHREE KHAN 12/26/18 Metronidazole* (Metronidazole*) 250 Mg Tablet, 250 MG PO Q6 for 14 Days, #56 TAB Prov:JAYSHREE KHAN 12/26/18 Doxycycline* (Vibramycin*) 100 Mg Tab, 100 MG PO BID for 14 Days, #28 TAB Prov:JAYSHREE KHAN 12/26/18 Omeprazole* (Omeprazole*) 40 Mg Capsule.dr, 40 MG PO DAILY, #30 CAP Resume after 14 day course of Protonix Prov:JAYSHREE KHAN 12/26/18 Reported Medications Ranitidine Hcl* (Ranitidine Hcl*) 75 Mg Tablet, 40 MG PO BID PRN for HEARTBURN, #60 TAB 10/29/18 Discontinued Reported Medications [Vitamins] No Conflict Check 10/29/18 Omeprazole* (Omeprazole*) 40 Mg Capsule.dr, 40 MG PO DAILY 07/06/13 Diltiazem Hcl (Diltia Xt) 180 Mg Capsule.cr, 180 MG PO DAILY 07/06/13 Aspirin (Asperdrink) 81 Mg Tablet.eff, 81 MG PO DAILY 07/06/13 Discontinued Scripts Diltiazem Hcl* (Cardizem LA*) 180 Mg Tab.sr.24h, 180 MG PO DAILY, #30 TAB.SA Prov:JUANITA DUNBAR MD 02/13/17 Follow-up Plan FOLLOW UP WITH YOUR PCP IN 1-2 WEEKS, FOLLOW UP WITH DR WEST IN 6 WEEKS TO Recheck H. pylori breath test after completing treatment to assess if bacteria has been eradicated Primary Care Provider [facility] Time spent on discharge: > 30 minutes JAYSHREE KHAN December 26, 2018 14:06
[2018-12-26 14:44] VITALS: BP 129/64; PULSE 72; RESP 17
== END 2018-12-26 15:07 | disposition home or self-care (01) ==
LOC: E/R 09:19 → INTOOBSV 13:19 → 6WM 13:19 → 2NE 12-25 22:27
PROVIDERS: ADMIT Internal Medicine; ATTEND Internal Medicine
DX: R10.9 Unspecified abdominal pain (principal); R07.89 Other chest pain; I10 Essential (primary) hypertension; I25.10 Atherosclerotic heart disease of native coronary artery without angina pectoris; J45.909 Unspecified asthma, uncomplicated; E78.5 Hyperlipidemia, unspecified; Z86.73 Personal history of transient ischemic attack (TIA), and cerebral infarction without residual deficits; Z98.51 Tubal ligation status; Z79.82 Long term (current) use of aspirin; Z98.61 Coronary angioplasty status
CPT/HCPCS: 36415; 71045; 74176; 80048; 80053; 80061; 81003; 83036; 83690; 83735; 84100; 84484; 85025; 93005; 99285; G0378; J0744; J2405; 99217